=== PATIENT | male | born 1955 | race Caucasian/White ===

== ENCOUNTER 2021-08-18 11:30 | Outpatient (CLI) | payer MEDICARE, BC, SELFPAY ==
[2021-08-18 12:28] LABS: Basophils % 0.2 %; Eosinophils # 0.1 10^3/uL (0.0-0.8); Eosinophils % 1.1 %; Hemoglobin 16.2 g/dL (11.7-16.6); Lymphocytes # 2.1 10^3/uL (0.8-4.8); Lymphocytes % 39.1 %; Mean Corpuscular HGB Conc 34.5 g/dL (30.0-36.0); Mean Corpuscular Hemoglobin 30.5 pg (28.0-34.0); Mean Corpuscular Volume 88.5 fl (80-94); Mean Platelet Volume 10.8 fL (7.4-10.4); Monocytes # 0.4 10^3/uL (0.2-0.9); Monocytes % 8.3 %; Neutrophils # 2.72 10^3/uL (1.8-7.7); Neutrophils % 51.1 %; Nucleated Red Blood Cells % 0 %; Platelet Count 116 10^3/cmm (130-400); Red Blood Count 5.31 10^6/uL (4.1-5.3); Red Cell Distribution Width 11.4 % (12.1-15.1); White Blood Count 5.3 10^3/uL (4.0-10.0)
--- NOTE | 2021-08-18 14:26 | ONC CON_ITS ---
Dr. Dove New Patient Note Patient: José Miguel Parrish Unit #: [id number]: 1955 Dicatated By: Zander Dove M.D.Date of Visit: Aug 18, 2021 Onc MED New Patient/Consult Referring Physician: Caridad Funk N.P. History of Present Illness: Mr. José Miguel Wilder, is a 66-year-old gentleman with a history of thrombocytopenia, as per patient it was 10 or 12 years ago when he was told about mildly low platelet count, as per patient at that time his physician decided to monitor and he was reassured. Has never seen senior information systems architect before. Patient denies any history of melena, hematochezia, nosebleed or gum bleed or petechia or ecchymosis as per patient, in July 2021 during his routine follow-up, his lab work-up showed platelet count 98,000, white blood count 5.6 hemoglobin 16.2 hematocrit 48.2 with a normal differential and because of low platelet count he was referred to hematology for evaluation. Patient denies any night sweats, denies any weight loss, denies any abdominal pain or fullness, denies any peripheral lymphadenopathy, jaundice, denies any recent infection, as per patient he used to take 4 ibuprofen daily but now switched to meloxicam. Patient denies alcohol use, denies any pfva-bod-aqgjioq medication or herbs. Past Medical History: Mr. Bergers medical history consists of BPH, hyperlipidemia, and hypertension. Past Surgical History: Mr. Bergers surgical/procedural history consists of repair of left index finger(pins), Covid 19 vaccine-Moderna in 2020, and transurethral microwave therapy in 2013. Medications: amLODIPine Besylate 1 Tablet (of 10 mg) Oral daily for 90 days, Crestor 1 Tablet (of 20 mg) Oral daily for 90 days, Meloxicam 1 Tablet (of 15 mg) Oral daily Allergies: No Known Allergies. Social History: Mr. Parrish is . Mr. Parrish has never smoked. He has no history of drinking. Family History: There is no documented family history. Review Of Symptoms: Review of Systems is not available for this patient. Vital Signs: Most recent vitals are not available for this patient. Performance Status: 0 - Fully active, able to carry on all predisease activities without restrictions. (ECOG) Physical Examination: ENMT - No mouth sores, no thrush, no jaundice, No cervical lymphadenopathy, Respiratory - Lungs are clear to auscultation, Cardiovascular - Regular rate and rhythm of heart, Abdomen - Soft, bowel sounds present, Extremities - No visible edema. Lab/Imaging: Most recent lab results are not available for this patient. Impression: Longstanding history of isolated mild thrombocytopenia, etiology unclear could be due to medication or low-grade ITP or primary marrow disorder e.g. early MDS or idiopathic. Hypertension Hyperlipidemia Plan: Discussed with patient regarding his labs white blood count 5.3 hemoglobin 16.2 hematocrit 47, platelets 116,000 with a normal differential Clinically, patient doing well with no new signs symptom suggestive of gross bleeding, his repeat CBC done today shows improvement in his mild isolated thrombocytopenia e.g. platelet count is 116,000 normal being 130-400,000, compared to 98,000 on July 08, 2021, As patient mentioned, he has history of mildly low platelets over 10 years, and no history of gross bleeding, his CBC shows hemoglobin normal range, at this point, we will review his peripheral blood smear and see him back in 1 month with CBC, if the platelet count continue to improve or stay stable, will monitor him closely. And will also try to get medical records from his previous PMD in [place]. Signed By: Zander Dove M.D. <<Signature on File>>
== END 2021-08-18 11:31 | disposition home or self-care (01) ==
PROVIDERS: PCP Internal Medicine; Visit Provider Internal Medicine Hematology & Oncology
DX: D69.6 Thrombocytopenia, unspecified (principal); N40.0 Benign prostatic hyperplasia without lower urinary tract symptoms; E78.5 Hyperlipidemia, unspecified; I10 Essential (primary) hypertension; Z79.899 Other long term (current) drug therapy
CPT/HCPCS: 36415; 85025; 99205

== ENCOUNTER 2021-09-20 07:53 | Outpatient (CLI) | payer MEDICARE, BC, SELFPAY ==
[2021-09-20 08:56] LABS: Basophils % 0.4 %; Eosinophils # 0.1 10^3/uL (0.0-0.8); Eosinophils % 1.4 %; Hematocrit 46.8 % (42.0-52.0); Hemoglobin 15.7 g/dL (11.7-16.6); Lymphocytes # 2.4 10^3/uL (0.8-4.8); Lymphocytes % 43.5 %; Mean Corpuscular HGB Conc 33.5 g/dL (30.0-36.0); Mean Corpuscular Hemoglobin 30.4 pg (28.0-34.0); Mean Corpuscular Volume 90.7 fl (80-94); Mean Platelet Volume 11.1 fL (7.4-10.4); Monocytes # 0.4 10^3/uL (0.2-0.9); Monocytes % 7.7 %; Neutrophils % 46.6 %; Nucleated Red Blood Cells % 0 %; Platelet Count 126 10^3/cmm (130-400); Red Blood Count 5.16 10^6/uL (4.1-5.3); Red Cell Distribution Width 11.6 % (12.1-15.1); White Blood Count 5.6 10^3/uL (4.0-10.0)
== END 2021-09-20 07:54 | disposition home or self-care (01) ==
LOC: ONCMED 08:00
PROVIDERS: PCP Nurse Practitioner; Visit Provider Internal Medicine Hematology & Oncology
DX: D69.6 Thrombocytopenia, unspecified (principal)
CPT/HCPCS: 36415; 85025

== ENCOUNTER 2021-09-21 07:49 | Outpatient (CLI) | payer MEDICARE, BC, SELFPAY ==
--- NOTE | 2021-09-21 16:01 | ONC FU_ITS ---
Dr. Dove follow up note Patient: José Miguel Parrish Unit #: [id number]: 1955 Dicatated By: Zander Dove M.D.Date of Visit:Sep 21, 2021 Onc Med Follow-up/Prog Note History of Present Illness: Mr. José Miguel Wilder, is a 66-year-old gentleman with a history of thrombocytopenia, as per patient it was 10 or 12 years ago when he was told about mildly low platelet count, as per patient at that time his physician decided to monitor and he was reassured. Has never seen flight line mechanic before. Patient denies any history of melena, hematochezia, nosebleed or gum bleed or petechia or ecchymosis as per patient, in July 2021 during his routine follow-up, his lab work-up showed platelet count 98,000, white blood count 5.6 hemoglobin 16.2 hematocrit 48.2 with a normal differential and because of low platelet count he was referred to hematology for evaluation. Patient denies any night sweats, denies any weight loss, denies any abdominal pain or fullness, denies any peripheral lymphadenopathy, jaundice, denies any recent infection, as per patient he used to take 4 ibuprofen daily but now switched to meloxicam. Patient denies alcohol use, denies any akfd-yea-cuselnh medication or herbs. Came for follow-up, denies any specific complaints, no fever chills, no nausea or vomiting, no diarrhea or constipation, no petechia or ecchymosis, no nosebleed or gum bleed, no dysuria or hematuria, no melena or hematochezia Medications: amLODIPine Besylate 1 Tablet (of 5 mg) Oral daily for 90 days, Crestor 1 Tablet (of 20 mg) Oral daily for 90 days, Meloxicam 1 Tablet (of 15 mg) Oral daily Allergies: No Known Allergies. Review of Systems: Review of Systems is not available for this patient. Vital Signs: Performed on Sep 21, 2021 09:47 Weight - 210.2 lbs (HIGH) BSA - 0.00 sq.m BMI - 0.00 Temperature - 97.4 F (LOW) Pulse - 89 /min Respiration - 18 /min BP - 152/90 mm(hg) (HIGH) O2 Sat - 96 % Pain - 0 Fatigue - 2 Performance Status: 0 - Fully active, able to carry on all predisease activities without restrictions. (ECOG) Physical Examination: ENMT - No mouth sores, no thrush, no jaundice, Respiratory - Lungs are clear to auscultation, Cardiovascular - Regular rate and rhythm of heart, Abdomen - Soft, bowel sounds present, Extremities - No visible edema. Lab/Imaging: Most recent lab results are not available for this patient. Impression: Longstanding history of isolated mild thrombocytopenia, etiology unclear could be due to medication or low-grade ITP or primary marrow disorder e.g. early MDS or idiopathic. Hypertension Hyperlipidemia Plan: Discussed with patient regarding his labs white blood count 5.6 hemoglobin 15.7 hematocrit 46.8 platelets 126,000 normal being 130- 400,000 compared to 116,000 on August 18, 2021 Clinically, patient is doing well with no new signs symptoms suggestive of acute or chronic bleeding, his follow-up CBC shows improving isolated thrombocytopenia. Peripheral blood smear shows no obvious abnormality, adequate platelets, no clumps. At this point, no further work-up rather observation, patient return to clinic in 2 months with CBC Signed By: Zander Dove M.D. <<Signature on File>>
== END 2021-09-21 07:50 | disposition home or self-care (01) ==
LOC: ONCMED 07:50
PROVIDERS: PCP Nurse Practitioner; Visit Provider Internal Medicine Hematology & Oncology
DX: D69.6 Thrombocytopenia, unspecified (principal); I10 Essential (primary) hypertension; E78.5 Hyperlipidemia, unspecified; Z79.899 Other long term (current) drug therapy
CPT/HCPCS: 99214

== ENCOUNTER → 2021-10-29 08:02 | Outpatient (BNVA) | payer MEDICARE, BC, SELFPAY | PROVIDERS: PCP Nurse Practitioner; Visit Provider Urology | DX: N43.3 Hydrocele, unspecified (principal); R39.9 Unspecified symptoms and signs involving the genitourinary system | CPT/HCPCS: 81003 ==

== ENCOUNTER 2021-11-18 08:14 | Outpatient (CLI) | payer MEDICARE, BC, SELFPAY ==
[2021-11-18 08:36] LABS: Basophils % 0.3 %; Eosinophils # 0.1 10^3/uL (0.0-0.8); Eosinophils % 1.8 %; Hemoglobin 15.8 g/dL (11.7-16.6); Lymphocytes # 1.7 10^3/uL (0.8-4.8); Lymphocytes % 44.6 %; Mean Corpuscular HGB Conc 33.6 g/dL (30.0-36.0); Mean Corpuscular Hemoglobin 30.2 pg (28.0-34.0); Mean Corpuscular Volume 89.9 fl (80-94); Mean Platelet Volume 10.6 fL (7.4-10.4); Monocytes # 0.3 10^3/uL (0.2-0.9); Monocytes % 6.4 %; Neutrophils # 1.83 10^3/uL (1.8-7.7); Neutrophils % 46.9 %; Nucleated Red Blood Cells % 0 %; Platelet Count 109 10^3/cmm (130-400); Red Blood Count 5.23 10^6/uL (4.1-5.3); Red Cell Distribution Width 11.9 % (12.1-15.1); White Blood Count 3.9 10^3/uL (4.0-10.0)
== END 2021-11-18 08:15 | disposition home or self-care (01) ==
PROVIDERS: PCP Nurse Practitioner; Visit Provider Internal Medicine Hematology & Oncology
DX: D69.6 Thrombocytopenia, unspecified (principal)
CPT/HCPCS: 36415; 85025

== ENCOUNTER 2021-11-22 11:55 | Outpatient (CLI) | payer MEDICARE, BC, SELFPAY ==
--- NOTE | 2021-11-25 08:52 | ONC FU_ITS ---
Genesis Paulson Progress Note Patient: José Miguel Parrish Unit #: [id number]: 1955 Dicatated By: Genesis Paulson N.P.Date of Visit:Nov 22, 2021 Onc MED Follow-up/Prog Note Chief Complaint: Thrombocytopenia History of Present Illness: Mr. José Miguel Wilder, is a 66-year-old gentleman with a history of thrombocytopenia, as per patient it was 10 or 12 years ago when he was told about mildly low platelet count, as per patient at that time his physician decided to monitor and he was reassured. Has never seen air breaker operator before. Patient denies any history of melena, hematochezia, nosebleed or gum bleed or petechia or ecchymosis as per patient, in July 2021 during his routine follow-up, his lab work-up showed platelet count 98,000, white blood count 5.6 hemoglobin 16.2 hematocrit 48.2 with a normal differential and because of low platelet count he was referred to hematology for evaluation. Patient denies any night sweats, denies any weight loss, denies any abdominal pain or fullness, denies any peripheral lymphadenopathy, jaundice, denies any recent infection, as per patient he used to take 4 ibuprofen daily but now switched to meloxicam. Patient denies alcohol use, denies any negh-gyh-kawecwd medication or herbs. Patient presents today for follow-up. He states he is feeling well. He denies weakness or fatigue. His appetite is good. No fever, chills, night sweats. No sinus drainage or sore throat. No shortness of breath, cough, chest pain. No abdominal pain, hematochezia, or melena. No joint or bone pain. No headaches or dizziness. Review Of Symptoms: See above. Past Medical History: BPH Hyperlipidemia Hypertension Past Surgical History: Repair of left index finger(pins) Covid 19 vaccine-Moderna in 2020 Transurethral microwave therapy in 2013 Allergies: No Known Allergies. Medications: amLODIPine Besylate 1 Tablet (of 5 mg) Oral daily for 90 days Meloxicam 1 Tablet (of 15 mg) Oral daily Family History: There is no documented family history. Social History: Mr. Parrish is . Mr. Parrish has never smoked. He has no history of drinking. Physical Examination: Performed on Nov 22, 2021 12:19: Height - 69 in, Weight - 203.0 lbs (LOW), BSA - 2.08 sq.m, BMI - 29.98, Temperature - 97.0 F (LOW), Pulse - 61 /min, Respiration - 18 /min, BP - 146/81 mm(hg) (HIGH), O2 Sat - 98 %, Pain - 0, and Fatigue - 3. Performance Status: 0 - Fully active, able to carry on all predisease activities without restrictions. (ECOG) Constitutional Alert, cooperative, oriented. Mood and affect appropriate. Appears close to chronological age. Well nourished. Well developed. Head Normocephalic; no scars. Respiratory Lungs are clear to auscultation without rhonchi or wheezing. Cardiovascular Regular rate and rhythm of heart without murmurs, gallops or rubs. Abdomen Non-tender, non-distended, no masses, ascites or hepatosplenomegaly. Good bowel sounds. No guarding or rebound tenderness. Extremities No visible deformities, no cyanosis, clubbing or edema. Pulses 3+ and equal bilaterally. Musculoskeletal No tenderness or swelling, normal range of motion without obvious weakness. Psychiatric Alert and oriented times three. Coherent speech. Verbalizes understanding of our discussions today. Laboratory: Most recent lab results are not available for this patient. Impression: Longstanding history of isolated mild thrombocytopenia, etiology unclear could be due to medication or low-grade ITP or primary marrow disorder e.g. early MDS or idiopathic. Hypertension Hyperlipidemia Plan: Labs were reviewed with patient. His WBC is at 3.9, hemoglobin 15.8, hematocrit 47.1, and his platelet count is 109,000. Patient is doing well with no signs or symptoms of bleeding. His platelet count is slightly lower today than on previous visits. We will continue with expectant management. He will return to the clinic in 2 months with CBC and CMP. Signed By: Genesis Paulson N.P. <<Signature on File>>
== END 2021-11-22 11:56 | disposition home or self-care (01) ==
PROVIDERS: PCP Nurse Practitioner; Visit Provider Nurse Practitioner Family
DX: D69.6 Thrombocytopenia, unspecified (principal); I10 Essential (primary) hypertension; E78.5 Hyperlipidemia, unspecified
CPT/HCPCS: 99214

== ENCOUNTER 2022-01-24 13:51 | Oncology outpatient (recurring) (ONCR) | payer MEDICARE, BC, SELFPAY ==
[2022-01-21 07:38] LABS: Basophils % 0.1 %; Eosinophils # 0.1 10^3/uL (0.0-0.8); Eosinophils % 1.3 %; Hematocrit 42.5 % (42.0-52.0); Hemoglobin 15.2 g/dL (11.7-16.6); Lymphocytes # 1.9 10^3/uL (0.8-4.8); Lymphocytes % 27.4 %; Mean Corpuscular HGB Conc 35.8 g/dL (30.0-36.0); Mean Corpuscular Volume 86.6 fl (80-94); Mean Platelet Volume 10.9 fL (7.4-10.4); Monocytes # 0.5 10^3/uL (0.2-0.9); Monocytes % 7.6 %; Neutrophils # 4.39 10^3/uL (1.8-7.7); Neutrophils % 63.5 %; Nucleated Red Blood Cells % 0 %; Platelet Count 115 10^3/cmm (130-400); Red Blood Count 4.91 10^6/uL (4.1-5.3); Red Cell Distribution Width 11.7 % (12.1-15.1); White Blood Count 6.9 10^3/uL (4.0-10.0)
[2022-01-21 07:56] LABS: Alanine Aminotransferase 36 U/L (0-41); Albumin Level 4.2 g/dL (3.5-5.2); Alkaline Phosphatase 87 IU/L (40-130); Anion Gap 16.4 (5-19); Aspartate Amino Transferase 22 U/L (0-40); Blood Urea Nitrogen 12 mg/dL (8-23); Calcium 8.5 mg/dL (8.5-10.5); Carbon Dioxide 22 mmol/L (22-29); Chloride 102 mmol/L (98-107); Globulin 2.6 g/dL (1.3-4.6); Glomerular Filtration Rate 113.2 mL/min (90-130); Glucose 214 mg/dL (65-115); Osmolality Calculated 290 mOsm/kg (285-295); Potassium 3.4 mmol/L (3.5-5.1); Sodium 137 mmol/L (136-145); Total Bilirubin 0.4 mg/dL (0.15-1.2); Total Protein 6.8 g/dL (6.6-8.7)
== END 2022-02-03 23:59 | disposition home or self-care (01) ==
PROVIDERS: PCP Nurse Practitioner; Visit Provider Nurse Practitioner Family
DX: D69.6 Thrombocytopenia, unspecified (principal); I10 Essential (primary) hypertension; E78.5 Hyperlipidemia, unspecified
CPT/HCPCS: 36415; 80053; 85025; 99214

== ENCOUNTER 2022-02-06 08:20 | Inpatient (IN) | payer MEDICARE, BC, SELFPAY ==
[2022-02-06] VITALS (8 sets, daily range): BP systolic 139–165; BP diastolic 82–92; PULSE 57–79; RESP 15–18; TEMP 36.6–37.1; O2SAT 93–97; BMI 29.2
--- NOTE | 2022-02-06 08:40 | ED_ITS ---
HPI - General Adult General: Chief complaint: General Medical Stated complaint: face swelling after taking steroid Time Seen by Provider: 02/06/22 08:33 History of Present Illness: 66-year-old presents with facial swelling. States that yesterday he started taking promethazine hydrocodone Benadryl prednisone due to suspected sinusitis as prescribed by his primary care doctor. States he is taking all his medications before but he started getting facial swelling that is worse over his upper lip and nose. Denies any fever. Reports mild congestion but no chest pain or shortness of breath. Denies any throat closure. Denies any GI symptoms or rash. Review of Systems Narrative: - CONSTITUTIONAL: Denies weight loss, fever and chills. - HEENT: Denies changes in vision and hearing. - RESPIRATORY: Denies SOB and cough. - CV: Denies palpitations and CP. - GI: Denies abdominal pain, nausea, vomiting and diarrhea. - : Denies dysuria and urinary frequency. - MSK: Denies myalgia and joint pain. - SKIN: Denies rash and pruritus. - NEUROLOGICAL: Denies headache, weakness, numbness and syncope. - PSYCHIATRIC: Denies suicidal ideation [facility] PFS: Medical History (Updated 01/24/22 @ 14:35 by Genesis Paulson NP) Arthritis Essential (primary) hypertension Family history of melanoma Hiatal hernia Hx of fracture of finger Left hydrocele Mild acid reflux Scrotal swelling Thrombocytopenia Surgical History Hx of eye surgery Family History Father Healthy adult Mother , AT 84 Dementia Stroke Other Cancer Social History Smoking and tobacco status: never smoked Alcohol intake: never Marital status: Current occupational status: retired History of recent travel: Yes Physical Exam Narrative: EXAM NARRATIVE: - GENERAL: Alert and oriented x 3. No acute distress. Well-nourished. - EYES: EOMI. Anicteric. - HENT: Upper lip and nasal swelling. No stridor. Oropharynx is clear. No myosis or proptosis. Atraumatic, no C-spine tenderness. Moist mucous membranes. No scleral icterus. No cervical lymphadenopathy. - LUNGS: Clear to auscultation bilaterally. No accessory muscle use. Equal lung sounds bilaterally. No respiratory distress. - CARDIOVASCULAR: Regular rate and rhythm. No murmur. No JVD. - ABDOMEN: Soft, non-tender and non-distended. Negative CVA tenderness bilaterally, no rebound or guarding, negative Crespo sign. No palpable masses. - EXTREMITIES: No edema. Non-tender. - SKIN: No rashes or lesions. Warm. - NEUROLOGIC: No meningismus or focal neurological deficits. CN II-XII grossly intact. - PSYCHIATRIC: Cooperative. Appropriate mood and affect. Course Vital Signs: Vital signs: Vital Signs Temperature 98.6 F 02/06/22 08:27 Pulse Rate 79 02/06/22 08:27 Respiratory Rate 16 02/06/22 08:27 Blood Pressure 165/92 02/06/22 08:27 Pulse Oximetry 97 02/06/22 08:27 MDM - General Adult Medical Decision Making 66-year-old presents with facial swelling. He was started on multiple medications recently by his primary care due to suspected sinusitis however states that he has been on all these medications in the past without acute event. Does have facial swelling. He denies any CATHERINE inhibitor or ARB use. D oes not have any other system involvement. On exam there is some swelling of the upper lip and upper face however there is no oropharyngeal swelling or stridor or wheezing. At this time we will stop all medications and admit for observation. Remainder of lab work and imaging reviewed. Discussed with hospitalist and they agreed patient would benefit from admission. Patient admitted in stable condition. Further evaluation management per hospitalist team. Lab Data : 02/06/22 08:50 02/06/22 08:50 Laboratory Results WBC 14.7 10^3/uL (4.0-10.0) H 02/06/22 08:50 RBC 5.24 10^6/uL (4.1-5.3) 02/06/22 08:50 Hgb 15.6 g/dL (11.7-16.6) 02/06/22 08:50 Hct 46.0 % (42.0-52.0) 02/06/22 08:50 MCV 87.8 fl (80-94) 02/06/22 08:50 MCH 29.8 pg (28.0-34.0) 02/06/22 08:50 MCHC 33.9 g/dL (30.0-36.0) 02/06/22 08:50 RDW 11.5 % (12.1-15.1) L 02/06/22 08:50 Plt Count 144 10^3/cmm (130-400) 02/06/22 08:50 MPV 10.7 fL (7.4-10.4) H 02/06/22 08:50 Neut % (Auto) 74.1 % 02/06/22 08:50 Lymph % (Auto) 16.6 % 02/06/22 08:50 Luce % (Auto) 7.9 % 02/06/22 08:50 Eos % (Auto) 0.3 % 02/06/22 08:50 Baso % (Auto) 0.3 % 02/06/22 08:50 Neut # (Auto) 10.86 10^3/uL (1.8-7.7) H 02/06/22 08:50 Lymph # (Auto) 2.4 10^3/uL (0.8-4.8) 02/06/22 08:50 Luce # (Auto) 1.2 10^3/uL (0.2-0.9) H 02/06/22 08:50 Eos # (Auto) 0.0 10^3/uL (0.0-0.8) 02/06/22 08:50 Baso # (Auto) 0.0 10^3/uL (0.0-0.1) 02/06/22 08:50 Nucleated RBC % (auto) 0 % 02/06/22 08:50 Nucleated RBCs # 0.0 /100WBC 02/06/22 08:50 Sodium 140 mmol/L (136-145) 02/06/22 08:50 Potassium 3.6 mmol/L (3.5-5.1) 02/06/22 08:50 Chloride 99 mmol/L (98-107) 02/06/22 08:50 Carbon Dioxide 32 mmol/L (22-29) H 02/06/22 08:50 Anion Gap 12.6 (5-19) 02/06/22 08:50 BUN 15 mg/dL (8-23) 02/06/22 08:50 Creatinine 0.9 mg/dL (0.7-1.2) 02/06/22 08:50 GFR Calculation 84.7 mL/min (90-130) L 02/06/22 08:50 Glucose 205 mg/dL (65-115) H 02/06/22 08:50 Calculated Osmolality 297 mOsm/kg (285-295) H 02/06/22 08:50 Calcium 9.4 mg/dL (8.5-10.5) 02/06/22 08:50 Total Bilirubin 0.4 mg/dL (0.15-1.2) 02/06/22 08:50 AST 14 U/L (0-40) 02/06/22 08:50 ALT 26 U/L (0-41) 02/06/22 08:50 Alkaline Phosphatase 87 IU/L (40-130) 02/06/22 08:50 Total Protein 7.6 g/dL (6.6-8.7) 02/06/22 08:50 Albumin 4.5 g/dL (3.5-5.2) 02/06/22 08:50 Globulin 3.1 g/dL (1.3-4.6) 02/06/22 08:50 Discharge Plan Discharge Condition: Stable Prescriptions: No Action amlodipine 10 mg tablet 10 mg PO DAILY 0RF albuterol sulfate [Ventolin HFA] 90 mcg/actuation HFA aerosol inhaler 2 puff inhalation Q6H PRN (Reason: shortness of breath or wheezing) Qty: 8.5 0RF benzonatate 100 mg capsule 100 mg PO BID PRN (Reason: cough) Qty: 10 0RF Referrals: Caridad Funk FNP [Primary Care Provider] - Coding Level of Care Code ED Americanization Teacher for Chg Yohannes
[2022-02-06 08:57] LABS: Basophils % 0.3 %; Eosinophils % 0.3 %; Hemoglobin 15.6 g/dL (11.7-16.6); Lymphocytes # 2.4 10^3/uL (0.8-4.8); Lymphocytes % 16.6 %; Mean Corpuscular HGB Conc 33.9 g/dL (30.0-36.0); Mean Corpuscular Hemoglobin 29.8 pg (28.0-34.0); Mean Corpuscular Volume 87.8 fl (80-94); Mean Platelet Volume 10.7 fL (7.4-10.4); Monocytes # 1.2 10^3/uL (0.2-0.9); Monocytes % 7.9 %; Neutrophils # 10.86 10^3/uL (1.8-7.7); Neutrophils % 74.1 %; Nucleated Red Blood Cells % 0 %; Platelet Count 144 10^3/cmm (130-400); Red Blood Count 5.24 10^6/uL (4.1-5.3); Red Cell Distribution Width 11.5 % (12.1-15.1); White Blood Count 14.7 10^3/uL (4.0-10.0)
[2022-02-06 09:17] LABS: Alanine Aminotransferase 26 U/L (0-41); Albumin Level 4.5 g/dL (3.5-5.2); Alkaline Phosphatase 87 IU/L (40-130); Anion Gap 12.6 (5-19); Aspartate Amino Transferase 14 U/L (0-40); Blood Urea Nitrogen 15 mg/dL (8-23); Calcium 9.4 mg/dL (8.5-10.5); Carbon Dioxide 32 mmol/L (22-29); Chloride 99 mmol/L (98-107); Globulin 3.1 g/dL (1.3-4.6); Glomerular Filtration Rate 84.7 mL/min (90-130); Glucose 205 mg/dL (65-115); Osmolality Calculated 297 mOsm/kg (285-295); Potassium 3.6 mmol/L (3.5-5.1); Sodium 140 mmol/L (136-145); Total Bilirubin 0.4 mg/dL (0.15-1.2); Total Protein 7.6 g/dL (6.6-8.7)
--- NOTE | 2022-02-06 11:45 | CTR_ITS ---
PROCEDURE INFORMATION: Exam: CT Neck With Contrast Exam date and time: 02/06/2022 1:11 PM Age: 66 years old Clinical indication: Other: Facial pain; Additional info: Red nose and face pain TECHNIQUE: Imaging protocol: Computed tomography of the neck with contrast. Radiation optimization: All CT scans at this facility use at least one of these dose optimization techniques: automated exposure control; mA and/or kV adjustment per patient size (includes targeted exams where dose is matched to clinical indication); or iterative reconstruction. Contrast material: OMNIPAQUE 350; Contrast volume: 75 ml; Contrast route: INTRAVENOUS (IV); COMPARISON: No relevant prior studies available. RADIATION DOSE METRICS: Total DLP (mGy-cm): 533.79 FINDINGS: Paranasal sinuses: There is mucosal thickening in the paranasal sinuses with near complete opacification of the right maxillary, right ethmoid and sphenoid sinuses. Pharynx: Unremarkable. No significant tonsillar enlargement. Larynx: Unremarkable. Epiglottis is normal. Prevertebral and retropharyngeal spaces: Unremarkable. Salivary glands: Normal. Glands are normal in size. Thyroid: Normal. No enlarged or calcified nodules. Lymph nodes: Unremarkable. No lymphadenopathy. Trachea: Visualized trachea is unremarkable. Lungs: Unremarkable as visualized. Bones/joints: Chronic degenerative changes are present in the cervical spine with disc space narrowing sclerosis and osteophytes. Soft tissues: Unremarkable. No significant soft tissue swelling. CT/CT neck w con* [id number] IMPRESSION: Paranasal sinusitis with near complete opacification of the right maxillary, right ethmoid and sphenoid sinuses.
[2022-02-06] MEDS: morphine 4 mg/mL SDV 1 mL 2 MG IVP (11:50)
--- NOTE | 2022-02-06 12:10 | PM.HP ---
Providers/Chief Complaint Admitting Physician: Nuris Rosa MD Primary Care Provider: JOJO Ramirez Chief Complaint: face swelling after taking steroid History of Present Illness José Miguel Parrish is a 66 year old male who presented today with chief complaint of worsening of swelling of his lip and redness of nose. Patient is stating that he has been dealing with sinus infection, chest congestion for last 1 week, his PCP recommended cough suppressant, steroids and Benadryl. He was not given any antibiotics. Few days after he went for fishing at [place], he swam in the water as well and next day he started noticing worsening redness and swelling of his nose and lip. He initially attributed his symptoms to reaction to medications. He decided to come to the ED for further evaluation because last night he could not sleep and he took 1 dose of hydrocodone which was prescribed to his by the doctor. Patient is stating that he took hydrocodone just to make him sleep. In the ER he was diagnosed with cellulitis by myself, requested CT neck he was diagnosed with complete opacification of maxillary ethmoid and sphenoid sinuses, no air-fluid levels to suggest sepsis, he does have cellulitis folliculitis of his nose, I did notice brown crusting inside his nose, I provided him MRSA and antipseudomonal coverage, did discuss this case with Dr. Marx however he is not on-call he is in agreement with IV antibiotics for now and outpatient follow-up no surgical intervention at this point Review of Systems Const: Reports: chills and body aches Eyes: Denies: change in vision ENMT: Denies: throat pain Card: Denies: chest pain Resp: Denies: dyspnea GI: Denies: abdominal pain : Denies: flank pain Musc: Denies: neck pain Skin/Breast: Reports: skin tenderness and skin swelling Neuro: Denies: headache(s) or numbness in extremities Psych: Denies: anxiety Endo: Denies: polyuria Gómez/Lymph: Denies: easy bruising All/Imm: Denies: urticaria Medications/Allergies Home Medications Medication Instructions Recorded Confirmed Last Taken Type albuterol sulfate 90 mcg/actuation 2 puff INHALATION Q6H PRN #8.5 g 10/23/21 02/06/22 Unknown Rx aerosol inhaler (Ventolin HFA) amlodipine 5 mg tablet 5 mg PO DAILY 02/06/22 02/06/22 02/06/22 History atorvastatin 20 mg tablet 20 mg PO DAILY 02/06/22 02/06/22 02/05/22 History fluticasone propionate 50 2 spray INTRANASAL DAILY PRN 02/06/22 02/06/22 Unknown History mcg/actuation nasal spray,suspension prednisone 20 mg tablet 40 mg PO DAILY 02/06/22 02/06/22 02/06/22 History promethazine-DM 6.25 mg-15 mg/5 mL 5 - 10 ml PO Q6H PRN 02/06/22 02/06/22 Unknown History oral syrup Allergies Allergy/AdvReac Type Severity Reaction Status Date / Time meloxicam Allergy ALGY-Swell Verified 01/24/22 14:04 Lip/Tongue/Throat PFSH Acute PFSH: Medical History Arthritis Essential (primary) hypertension Family history of melanoma Hiatal hernia Hx of fracture of finger Left hydrocele Mild acid reflux Scrotal swelling Thrombocytopenia Surgical History Hx of eye surgery Family History Father Healthy adult Mother , AT 84 Dementia Stroke Other Cancer Social History Smoking and tobacco status: never smoked Alcohol intake: never Marital status: Current occupational status: retired History of recent travel: Yes Vitals/I&O/Wt Last Vital Signs Temp 98.6 F 02/06/22 08:27 Pulse 76 02/06/22 11:39 Resp 17 02/06/22 11:50 BP 143/83 02/06/22 11:39 Pulse Ox 97 02/06/22 11:39 Weight last 48 hrs Weight 89.811 kg Physical Exam Narrative: Patient is sitting comfortably in his bed No active stridor or wheezing No active signs of respiratory distress Bilateral breath sounds are normal S1, S2 Nonfocal neuro exam No signs of meningoencephalitis Cellulitis of nose Nonpurulent Brown crusting inside his nose Nasal turbinates are swollen and erythematous Swelling of upper lip No signs of eye pain, EOMI, PERRLA No eye pain at all Data : 02/06/22 08:50 02/06/22 08:50 A&P Assessment and plan (1) Cellulitis: Status: Acute (2) Erysipelas: Status: Acute (3) Sinusitis: Status: Acute (4) Hyperglycemia: Status: Acute Plan Cellulitis nose Folliculitis of nasal hairs Patient recently swam in river water Alexis reynoso? No active signs of meningoencephalitis No periorbital edema, no pain on eye movement No headache or neck pain He is afebrile My concern is related to worsening of sinusitis, I would cover him for MRSA and Pseudomonas, check hemoglobin A1c I will give him steroids, IV antibiotics, keep him on IV fluids give him pseudoephedrine, Flonase I have discussed this case with ENT surgeon who did not recommend any surgical intervention for now I will also ask Dr. Santoro ID market intelligence consultant to take a look at him If I see any signs of worsening might need transfer to another hospital otherwise he will follow-up outpatient with Dr. 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
[2022-02-06] MEDS: piperacillin-tazobactam 3.375 GM in sodium chloride 0.9% (plus) 50 ML IV ×2 (12:27→18:56)
[2022-02-06 12:50] LABS: Procalcitonin 0.06 ng/mL (0-0.5)
[2022-02-06] MEDS: iohexol 350 mg/mL 100 mL Btl IV (13:09)
[2022-02-06] MEDS: enoxaparin 40 mg/0.4 mL Syringe SUBCUT (14:41)
[2022-02-06] MEDS: dexamethasone 4 mg/mL INJ IVP (14:41)
[2022-02-06] MEDS: sodium chloride 0.9% 1,000 ML 75 ML IV (14:42)
[2022-02-06] MEDS: morphine IR 15 mg Tablet PO (14:51)
[2022-02-06 17:09] LABS: Estmated Average Glucose 151; Hemoglobin A1C 6.9 % (4.0-6.0)
[2022-02-06 17:18] LABS: Glucose Point of Care 288 mg/dL (70-110)
[2022-02-06] MEDS: insulin lispro 100 unit/1 mL SUBCUT (17:18)
[2022-02-06] MEDS: fluticasone nasal spray 16gm Btl 1 SPRAY NASAL (17:19)
[2022-02-06 21:00] LABS: Glucose Point of Care 321 mg/dL (70-110)
[2022-02-06] MEDS: acetaminophen 500 mg Tablet PO (23:38)
[2022-02-07] VITALS (11 sets, daily range): BP systolic 139–178; BP diastolic 72–103; PULSE 63–71; RESP 16–18; TEMP 36.7–36.8; O2SAT 92–98
[2022-02-07] MEDS: vancomycin 1,250 MG/250 ML PIGGYBACK 250 MG IV ×2 (00:53→13:16)
[2022-02-07 04:36] LABS: Basophils % 0.2 %; Eosinophils % 0.1 %; Hematocrit 41.7 % (42.0-52.0); Hemoglobin 14.8 g/dL (11.7-16.6); Lymphocytes % 12.1 %; Mean Corpuscular HGB Conc 35.5 g/dL (30.0-36.0); Mean Corpuscular Hemoglobin 30.5 pg (28.0-34.0); Mean Corpuscular Volume 85.8 fl (80-94); Mean Platelet Volume 11.2 fL (7.4-10.4); Monocytes % 6.1 %; Neutrophils # 13.58 10^3/uL (1.8-7.7); Neutrophils % 80.8 %; Nucleated Red Blood Cells % 0 %; Platelet Count 142 10^3/cmm (130-400); Red Blood Count 4.86 10^6/uL (4.1-5.3); Red Cell Distribution Width 11.7 % (12.1-15.1); White Blood Count 16.8 10^3/uL (4.0-10.0)
[2022-02-07] MEDS: piperacillin-tazobactam 3.375 GM in sodium chloride 0.9% (plus) 50 ML IV ×3 (04:43→20:34)
[2022-02-07] MEDS: sodium chloride 0.9% 1,000 ML 75 ML IV (04:43)
[2022-02-07 05:02] LABS: Anion Gap 15.4 (5-19); Blood Urea Nitrogen 14 mg/dL (8-23); C Reactive Protein 119.4 mg/L (0.0-4.9); Calcium 8.7 mg/dL (8.5-10.5); Carbon Dioxide 25 mmol/L (22-29); Chloride 99 mmol/L (98-107); Creatinine Clr Calc Pharmacy 102.0109; Glomerular Filtration Rate 113.2 mL/min (90-130); Glucose 198 mg/dL (65-115); Magnesium 2.2 mg/dL (1.7-2.3); Osmolality Calculated 286 mOsm/kg (285-295); Potassium 4.4 mmol/L (3.5-5.1); Sodium 135 mmol/L (136-145)
[2022-02-07 05:24] LABS: Slide Review Slide Review Perform
[2022-02-07] MEDS: morphine IR 15 mg Tablet PO ×2 (06:46→18:15)
[2022-02-07 06:48] LABS: Glucose Point of Care 159 mg/dL (70-110)
--- NOTE | 2022-02-07 07:00 | P.CONIM_ITS ---
Providers/Reason For Consult Consulting Physician/Specialty*: Crystal Santoro MD/Infectious Disease Reason for Consult*: sinusitis/facial cellulitis Requesting Physician: Dr. Nuris Rosa Attending Physician: Nuris Rosa MD Primary Care Provider: JOJO Ramirez History of Present Illness History of Present Illness Patient seen and examined at 7am. José Miguel Parrish is a 66 year old male with PMH as outlined below who is currently admitted after developing facial swelling. Per patient he has been experiencing an episode of sinusitis for the past 7-10 days , managed by oral decongestants and oral steroids without significant change in symptoms. He has a h/o chronic allergies and recurrent seasonal sinusitis, which usually resolved with decongestants and Z ascencion. Describes his symptoms as rhinorrhea, nasal stuffiness and sinus fullness. On monday (today is Monday), patient went out fishing and then had to swim in the river to recover an item that had fallen over. Did not deep dive per history. On Monday evening he noticed that tip of his nose had started becoming red, warm and tender with changes extending more proximally into the nose. Also developed upper lip swelling. Presented to the ER due to concerns of cellulitis. CT neck was performed which showed patent airway, no pharyngeal, floor of mouth or tonsillar involvement. Note made of sinusitis on limited imaging. He denies any fever. Experienced chills this morning with some diaphoresis. Denies any cough, dyspnea or chest pain. No past h/o similar symptoms. Does not recall any obvious trauma to his nose or lip, except for excessive rubbing with tissue paper to clear nasal discharge. No blood in discharge. Denies past h/o herpetic infection. He inserted a rapid Ag covid swab into both nostrils on Monday morning. no past h/o fungal sinusitis. No h/o animal bite over the site. Hba1c at 7.0 Review of Systems General: Reports: 10 or more systems reviewed and unremarkable except in HPI and below Const: Denies: fever(s), chills or body aches Eyes: Denies: change in vision, blurry vision or photophobia ENMT: Reports: hoarseness; Denies: throat pain, enlarged tonsils, odynophagia or nasal congestion Card: Denies: chest pain, palpitations, irregular heart rhythm, edema, swelling of feet/ankles, lightheadedness, pre-syncope, dyspnea on exertion or orthopnea Resp: Denies: dyspnea, productive cough, non-productive cough, wheezing, stridor, pain on inspiration, change in phlegm color, hemoptysis or chest congestion GI: Denies: abdominal pain, nausea, vomiting, hematemesis, coffee ground emesis, dysphagia, heartburn, diarrhea, constipation, GI cramping, change in stool character, hematochezia or melena : Denies: flank pain, dysuria, urinary frequency, urinary urgency, urinary hesitancy or hematuria Musc: Denies: neck pain, back pain, extremity pain, joint swelling, joint warmth or deformity Neuro: Denies: headache(s), numbness in extremities, weakness in extremities, sensory changes, difficulty walking, frequent falls, dizziness, vertigo, behavioral changes, Slurred speech present or seizure-like activity Psych: Denies: anxiety, depression, suicidal ideation or homicidal ideation Endo: Denies: polyuria, polydipsia, tired all the time, cold intolerance or hot flashes Gómez/Lymph: Denies: easy bruising or easy bleeding Medications/Allergies Home Medications Medication Instructions Recorded Confirmed Last Taken Type albuterol sulfate 90 mcg/actuation 2 puff INHALATION Q6H PRN #8.5 g 10/23/21 02/06/22 Unknown Rx aerosol inhaler (Ventolin HFA) amlodipine 5 mg tablet 5 mg PO DAILY 02/06/22 02/06/22 02/06/22 History atorvastatin 20 mg tablet 20 mg PO DAILY 02/06/22 02/06/22 02/05/22 History fluticasone propionate 50 2 spray INTRANASAL DAILY PRN 02/06/22 02/06/22 Unknown History mcg/actuation nasal spray,suspension prednisone 20 mg tablet 40 mg PO DAILY 02/06/22 02/06/22 02/06/22 History promethazine-DM 6.25 mg-15 mg/5 mL 5 - 10 ml PO Q6H PRN 02/06/22 02/06/22 Unknown History oral syrup Allergies Allergy/AdvReac Type Severity Reaction Status Date / Time meloxicam Allergy José Verified 01/24/22 14:04 Lip/Tongue/Throat Current Medications Generic Name Dose Route Start Last Admin Trade Name Freq PRN Reason Stop Dose Admin Acetaminophen 500 mg 02/06/22 13:42 02/07/22 11:08 Acetaminophen 500 Mg Tablet PO 500 mg Q4H PRN Administration fever Enoxaparin Sodium 40 mg 02/06/22 14:00 02/07/22 13:41 Enoxaparin 40 Mg/0.4 Ml Syringe SUBCUT 40 mg Q24H BRITTA Administration Fluticasone Propionate 1 spray 02/06/22 18:00 02/07/22 17:20 Fluticasone Nasal [place] 16gm Btl NASAL 1 spray BID BRITTA Administration Hydromorphone HCl 0.2 mg 02/06/22 13:42 02/07/22 20:32 Hydromorphone 1 Mg/Ml Inj 1 Ml IVP 0.2 mg Q4H PRN Administration pain Piperacillin Sod/Tazobactam 50 mls @ 12.5 mls/hr 02/06/22 11:45 02/07/22 20:34 Sod 3.375 gm/ Sodium Chloride IV 12.5 mls/hr Q8H BRITTA Administration Protocol Vancomycin/PEG/NADA/Lysine/Water 1,250 mg in 250 mls @ 250 mls/hr 02/07/22 01:00 02/07/22 14:39 Vancocin IV Infused Q12H BRITTA Infusion Insulin Human Lispro 0 unit 02/06/22 18:00 02/07/22 17:19 Insulin Lispro 100 Unit/1 Ml SUBCUT Not Given TIDWM BRITTA Protocol Morphine Sulfate 15 mg 02/06/22 13:42 02/07/22 18:15 Morphine Ir 15 Mg Tablet PO 15 mg Q6H PRN Administration pAIN Senna/Docusate Sodium 1 tab 02/07/22 09:00 02/07/22 08:52 Sennosides-Docusate Tablet PO 1 tab DAILY BRITTA Administration PFSH Acute PFSH: Medical History Arthritis Essential (primary) hypertension Family history of melanoma Hiatal hernia Hx of fracture of finger Left hydrocele Mild acid reflux Scrotal swelling Thrombocytopenia Surgical History Hx of eye surgery Family History Father Healthy adult Mother , AT 84 Dementia Stroke Other Cancer Social History Smoking and tobacco status: never smoked Alcohol intake: never Marital status: Current occupational status: retired History of recent travel: Yes Vitals/I&O/Wt Last Vital Signs Temp 98.3 F 02/07/22 19:26 Pulse 70 02/07/22 20:00 Resp 18 02/07/22 20:32 BP 178/103 02/07/22 19:26 Pulse Ox 92 02/07/22 20:00 02/07/22 02/07/22 02/07/22 06:59 14:59 22:59 Intake Total 1350 / 2370 2245 / 2245 290 / 2535 Balance 1350 / 2370 2245 / 2245 290 / 2535 Weight last 48 hrs Weight 89.811 kg Weight 89.811 kg Physical Exam Narrative: General: No acute distress, AO x3 HEENT: PERRLA, no proptosis, pupils bilaterally equal and reactive, pallors not present. Soft tissue swelling, redness warmth and tenderness over nose tip of nose extending on either ala trending proximally. Swelling also noted along the nasal mucosa lining cartilages. yellowish crusting noted. Also noted skin excoriation over B/L ala and upper lip Abdomen: Soft, nontender, bowel sounds present Neuro: No focal deficits, no facial deformity, AO x3, power 5/5 in all limbs Data : 02/07/22 03:50 02/07/22 03:50 Other Labs: Radiology Impressions Neck CT 02/06/22 11:45 IMPRESSION: Paranasal sinusitis with near complete opacification of the right maxillary, right ethmoid and sphenoid sinuses. Laboratory Results WBC 16.8 10^3/uL (4.0-10.0) H 02/07/22 03:50 RBC 4.86 10^6/uL (4.1-5.3) 02/07/22 03:50 Hgb 14.8 g/dL (11.7-16.6) 02/07/22 03:50 Hct 41.7 % (42.0-52.0) L 02/07/22 03:50 MCV 85.8 fl (80-94) 02/07/22 03:50 MCH 30.5 pg (28.0-34.0) 02/07/22 03:50 MCHC 35.5 g/dL (30.0-36.0) 02/07/22 03:50 RDW 11.7 % (12.1-15.1) L 02/07/22 03:50 Plt Count 142 10^3/cmm (130-400) 02/07/22 03:50 MPV 11.2 fL (7.4-10.4) H 02/07/22 03:50 Neut % (Auto) 80.8 % 02/07/22 03:50 Lymph % (Auto) 12.1 % 02/07/22 03:50 Butler % (Auto) 6.1 % 02/07/22 03:50 Eos % (Auto) 0.1 % 02/07/22 03:50 Baso % (Auto) 0.2 % 02/07/22 03:50 Neut # (Auto) 13.58 10^3/uL (1.8-7.7) H 02/07/22 03:50 Lymph # (Auto) 2.0 10^3/uL (0.8-4.8) 02/07/22 03:50 Butler # (Auto) 1.0 10^3/uL (0.2-0.9) H 02/07/22 03:50 Eos # (Auto) 0.0 10^3/uL (0.0-0.8) 02/07/22 03:50 Baso # (Auto) 0.0 10^3/uL (0.0-0.1) 02/07/22 03:50 Nucleated RBC % (auto) 0 % 02/07/22 03:50 Nucleated RBCs # 0.0 /100WBC 02/07/22 03:50 Sodium 135 mmol/L (136-145) L 02/07/22 03:50 Potassium 4.4 mmol/L (3.5-5.1) 02/07/22 03:50 Chloride 99 mmol/L (98-107) 02/07/22 03:50 Carbon Dioxide 25 mmol/L (22-29) 02/07/22 03:50 Anion Gap 15.4 (5-19) 02/07/22 03:50 BUN 14 mg/dL (8-23) 02/07/22 03:50 Creatinine 0.7 mg/dL (0.7-1.2) 02/07/22 03:50 GFR Calculation 113.2 mL/min (90-130) 02/07/22 03:50 Glucose 198 mg/dL (65-115) H 02/07/22 03:50 POC Glucose 189 mg/dL (70-110) H 02/07/22 20:43 Estimat Average Glucose 154 02/07/22 03:50 Hemoglobin A1c 7.0 % (4.0-6.0) H 02/07/22 03:50 Calculated Osmolality 286 mOsm/kg (285-295) 02/07/22 03:50 Calcium 8.7 mg/dL (8.5-10.5) 02/07/22 03:50 Magnesium 2.2 mg/dL (1.7-2.3) 02/07/22 03:50 Total Bilirubin 0.4 mg/dL (0.15-1.2) 02/06/22 08:50 AST 14 U/L (0-40) 02/06/22 08:50 ALT 26 U/L (0-41) 02/06/22 08:50 Alkaline Phosphatase 87 IU/L (40-130) 02/06/22 08:50 C-Reactive Protein 119.4 mg/L (0.0-4.9) H 02/07/22 03:50 Total Protein 7.6 g/dL (6.6-8.7) 02/06/22 08:50 Albumin 4.5 g/dL (3.5-5.2) 02/06/22 08:50 Globulin 3.1 g/dL (1.3-4.6) 02/06/22 08:50 Triglycerides 90 mg/dL (0-150) 02/07/22 03:50 Cholesterol 127 mg/dL (0-200) 02/07/22 03:50 LDL Cholesterol, Calc 61 mg/dL (50-129) 02/07/22 03:50 HDL Cholesterol 48 mg/dL (60-100) L 02/07/22 03:50 LDL/HDL Ratio 1.27 RATIO (0.00-3.22) 02/07/22 03:50 Cholesterol/HDL Ratio 2.65 mg/dL (1.0-5.00) 02/07/22 03:50 Procalcitonin 0.06 ng/mL (0-0.5) 02/06/22 08:50 Micro: Microbiology 02/06/22 17:21 MRSA Culture - Final Nose A&P Assessment and plan (1) Sinusitis: Status: Acute (2) Facial cellulitis: Status: Acute (3) Type 2 diabetes mellitus: Status: Acute Plan 66M diabetic male p/w facial cellulitis over past 2 days in a background history of sinusitis over the past 7-10 days. Cellulitis may have been precipitated by skin excoriation by excessive rubbing with dry tissues, which in turn served as portal of entry for skin bacteria such as staphylococcus and streptococcus. Other possibility includes spread of infectious and inflammatory changes from paranasal sinuses into surrounding fascial planes. Recommend to obtain dedicated face and paranasal sinus CT to ascertain presence of any sinus &/or nasal abscess, bony involvement including orbits and extent of soft tissue changes. CT neck without any evidence of pharnygeal involvement. No noted proptosis. Obtain blood culture Continue abx coverage including Pseudomonal and MRSA coverage with Piperacillin/Tazobactam and Vancomycin. If patient fails to show improvement with broad spectrum coverage over the next 48-72 hrs, may need dedicated sinus culture to evaluate for infection with atypical organisms (AFB, fungal, etc,), though this seems less likely given rapidity of onset of symptoms. No current signs of meningoencephalitis &/or venous thrombosis. Use only soft baby wipes if needed to minimize trauma, Local application of mupirocin over B/L nares Recommendations discussed with hospitalist Dr. Rosa I will be away from the 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
--- NOTE | 2022-02-07 08:44 | CTR_ITS ---
PROCEDURE INFORMATION: Exam: CT Maxillofacial Without Contrast, Sinus Exam date and time: 02/07/2022 9:40 AM Age: 66 years old Clinical indication: Sinusitis; Acute TECHNIQUE: Imaging protocol: CT Maxillofacial without contrast. Focus on the sinuses. Radiation optimization: All CT scans at this facility use at least one of these dose optimization techniques: automated exposure control; mA and/or kV adjustment per patient size (includes targeted exams where dose is matched to clinical indication); or iterative reconstruction. COMPARISON: CT neck w con* [id number] 02/06/2022 1:11 PM RADIATION DOSE METRICS: Total DLP (mGy-cm): 612.9 FINDINGS: Frontal sinuses: There is minimal mucosal thickening of the inferior right frontal sinus. Ethmoid air cells: Moderate mucosal thickening of the right ethmoid air cells. Sphenoid sinuses: Near complete opacification of the right sphenoid sinus. Maxillary sinuses: Near complete opacification of the right maxillary sinus. There is soft tissue filling the right infundibulum, which appears narrowed. Small mucosal retention cyst in the left maxillary sinus. Nasal cavity: Hypertrophic inferior right nasal turbinate. Orbital cavities: Orbits are normal. Globes are unremarkable. Bones/joints: Unremarkable. Soft tissues: Within normal limits. CT/CT sinus wo con* [id number] IMPRESSION: Moderately advanced right-sided paranasal sinus disease as further detailed above.
[2022-02-07] MEDS: insulin lispro 100 unit/1 mL SUBCUT ×2 (08:51→12:30)
[2022-02-07] MEDS: sennosides-docusate Tablet 1 TAB PO (08:52)
[2022-02-07] MEDS: fluticasone nasal spray 16gm Btl 1 SPRAY NASAL ×2 (08:55→17:20)
--- NOTE | 2022-02-07 10:36 | PC.CHAP ---
Pastoral Care Encounter/Spiritual Assessment Type of Contact [] Declined hide sorter visit [] Patient/Family/Request visit [] Outpatient visit [] Follow-up visit [] Physician referral [] Code/Alert [x] Routine visit [] Staff referral [] Actively dying [] Patient sleeping [] Family support [] [] Out of room [] Palliative care [] [] Receiving care in room [] Pre-surgical visit [] Trauma [] Long length of stay [] ICU visit [] Other: Relational/Emotional Strength [x] Patient feels connected with others/family/visitors/staff [] Distress [] Loneliness/isolation [] Abandonment Spirituality of Patient x[] Person of Raina [] Attends Religion of their Raina [x] Believes in Prayer [] Reads Bible or Sikh materials [] There are Spiritual issues to be addressed Firefighting Equipment Specialist Interventions [x] Prayer [x] Active listening [x] Non-anxious presence [] Spiritual/emotional support [] Crisis/trauma care [] Spiritual counseling [] Bereavement support [] Provided bereavement packet [] Provided Bible/devotional materials [] Provided toy/stuffed animal, coloring book to patient or family member [] Provided Communion [] Anointing/[place] [] Salvation [x] Completed spiritual assessment [] Other: Impact on Illness or Injury [] Angry [] Fearful [] Anxious [] Often cries [] Exhaustion [] Unable to work [] Unable to attend religious [] Unable to walk/stand [] Unable to read [] Unable to drive [] Unable to eat/drink [] Unable to sleep [] Unable to be with family [] Patient intubated [] Other: Summary Time spent with patient 10 min
[2022-02-07 10:56] LABS: Chol HDL Ratio 2.65 mg/dL (1.0-5.00); Cholesterol 127 mg/dL (0-200); HDL Cholesterol 48 mg/dL (60-100); LDL Cholesterol Calculated 61 mg/dL (50-129); LDL HDL Ratio 1.27 RATIO (0.00-3.22); Triglycerides 90 mg/dL (0-150)
[2022-02-07 10:59] LABS: Estmated Average Glucose 154
[2022-02-07] MEDS: HYDROmorphone 1 mg/mL INJ 1 mL 0.2 MG IVP ×2 (11:08→20:32)
[2022-02-07] MEDS: acetaminophen 500 mg Tablet PO (11:08)
[2022-02-07 11:36] LABS: Glucose Point of Care 325 mg/dL (70-110)
--- NOTE | 2022-02-07 12:19 | PM.PN ---
Subjective Subjective: Appreciate ID recommendations We will do face CT scan this morning His redness has improved however swelling is almost at the same level Patient is endorsing feeling slightly better Continue IV antibiotics Discontinue steroids Leukocytosis could be related to use of steroids He has been afebrile No active wheezing or stridor Vitals/I&O/Wt Last Vital Signs Temp 98.1 F 02/07/22 11:43 Pulse 65 02/07/22 11:43 Resp 18 02/07/22 11:43 BP 142/72 02/07/22 11:43 Pulse Ox 97 02/07/22 11:43 02/06/22 02/07/22 02/07/22 22:59 06:59 14:59 Intake Total 720 / 1020 1350 / 2370 1170 / 1170 Balance 720 / 1020 1350 / 2370 1170 / 1170 Weight last 48 hrs Weight 89.811 kg Weight 89.811 kg Physical Exam Narrative: Patient is sitting comfortably in his bed No active stridor or wheezing Abdomen soft Active chest pain Saturating well Hemodynamically stable Redness improved however swelling is almost at the same level Crusting inside his nasal mucosa improved as well No tenderness or swelling around eyes No signs of headache no signs of meningitis No signs of enterocolitis Data : 02/07/22 03:50 02/07/22 03:50 Micro: Microbiology 02/06/22 17:21 MRSA Culture - Final Nose A&P Assessment and plan (1) Sinusitis: Status: Acute (2) Erysipelas: Status: Acute (3) Cellulitis: Status: Acute (4) Hyperglycemia: Status: Acute (5) Type 2 diabetes mellitus: Status: Acute Plan Type 2 diabetes newly diagnosed Hemoglobin A1c 7 hyperglycemia Discontinue steroids Consistent carb diet We will add metformin at the time of discharge Cellulitis of nose Likely related to trauma after COVID swab No meningoencephalitis Cover for MRSA and pseudomonal microorganisms for 1 more day We will discharge him on doxycycline and Augmentin He will follow-up with ENT surgeon Redness has improved No signs of swelling around his eyes or pain Full code Consistent carb diet DVT prophylaxis on board Plan to discharge him tomorrow Greatly appreciate recommendations from ID Attestations Medical Necessity Statement*: Discharge tomorrow Time Spent in Patient Care: 30 Coding Level of Care 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
[2022-02-07] MEDS: enoxaparin 40 mg/0.4 mL Syringe SUBCUT (13:41)
[2022-02-07 16:55] LABS: Glucose Point of Care 120 mg/dL (70-110)
--- NOTE | 2022-02-07 17:46 | PC.NURSE ---
Patient AAOx4, VSS, pain to face and head and reports its more of a throbbing pain. Facial area is red and edemitis, patient is cooperative. OOBTC and bathroom, no new events or needs at this time. Family at bedside, room clean and clutter free with call light in reach. Will report at bedside at shift change to oncoming nurse.
[2022-02-07 20:48] LABS: Glucose Point of Care 189 mg/dL (70-110)
[2022-02-08] VITALS (7 sets, daily range): BP systolic 127–166; BP diastolic 74–91; PULSE 67–81; RESP 16–18; TEMP 36.8–36.9; O2SAT 93–96
[2022-02-08] MEDS: acetaminophen 500 mg Tablet PO ×2 (00:01→04:27)
[2022-02-08 01:32] LABS: Basophils % 0.2 %; Eosinophils % 0.2 %; Hematocrit 41.2 % (42.0-52.0); Hemoglobin 14.7 g/dL (11.7-16.6); Lymphocytes # 2.6 10^3/uL (0.8-4.8); Lymphocytes % 17.7 %; Mean Corpuscular HGB Conc 35.7 g/dL (30.0-36.0); Mean Corpuscular Hemoglobin 30.9 pg (28.0-34.0); Mean Corpuscular Volume 86.6 fl (80-94); Mean Platelet Volume 11.1 fL (7.4-10.4); Neutrophils # 10.81 10^3/uL (1.8-7.7); Neutrophils % 74.2 %; Nucleated Red Blood Cells % 0 %; Platelet Count 137 10^3/cmm (130-400); Red Blood Count 4.76 10^6/uL (4.1-5.3); Red Cell Distribution Width 11.5 % (12.1-15.1); White Blood Count 14.6 10^3/uL (4.0-10.0)
[2022-02-08 01:49] LABS: Blood Urea Nitrogen 14 mg/dL (8-23); Calcium 8.4 mg/dL (8.5-10.5); Carbon Dioxide 26 mmol/L (22-29); Chloride 95 mmol/L (98-107); Creatinine Clr Calc Pharmacy 102.0109; Glucose 149 mg/dL (65-115); Osmolality Calculated 277 mOsm/kg (285-295); Sodium 132 mmol/L (136-145)
[2022-02-08 01:50] LABS: Vancomycin Trough 7.4 ug/mL (10-15)
[2022-02-08 01:54] LABS: Anion Gap 14.8 (5-19); Potassium 3.8 mmol/L (3.5-5.1)
[2022-02-08 01:57] LABS: Procalcitonin 0.06 ng/mL (0-0.5)
[2022-02-08] MEDS: vancomycin 1,250 MG/250 ML PIGGYBACK 250 MG IV (01:59)
[2022-02-08] MEDS: piperacillin-tazobactam 3.375 GM in sodium chloride 0.9% (plus) 50 ML IV (03:24)
[2022-02-08] MEDS: diphenhydrAMINE 25 mg Capsule PO (03:24)
--- NOTE | 2022-02-08 03:25 | PC.PHAR ---
Vancomycin trough on dosage of 1250mg IVPB every 12 hours is 7.4. Dosage is increased to 1250mg IVPB every 8 hours with another trough to be obtained before the fourth dose at this rate.
[2022-02-08 06:43] LABS: Glucose Point of Care 128 mg/dL (70-110)
--- NOTE | 2022-02-08 07:15 | PC.NURSE ---
Report received from Kelley MALDONADO at this time.
[2022-02-08] MEDS: sennosides-docusate Tablet 1 TAB PO (09:31)
[2022-02-08] MEDS: fluticasone nasal spray 16gm Btl 1 SPRAY NASAL (09:33)
--- NOTE | 2022-02-08 10:21 | PM.TDS ---
Transfer Summary Providers Date of Admission: 02/06/22 10:23 Date of Discharge/Transfer: 02/08/22 Attending Provider at Admission: Nuris Rosa MD Attending Provider at Transfer: Nuris Rosa MD Primary Care Provider: JOJO Ramirez Transfer Plans: Anticipated date of transfer: 02/08/22. Diagnoses at Discharge Discharge Diagnosis (1) Sinusitis: Status: Acute (2) Facial cellulitis: Status: Acute (3) Type 2 diabetes mellitus: Status: Acute Reason for Visit Reason for Visit face swelling after taking steroid Hospital Course Hospital Course This note was written by Dr. 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 Per patient he has been experiencing an episode of sinusitis for the past 7-10 days , managed by oral decongestants and oral steroids without significant change in symptoms. He has a h/o chronic allergies and recurrent seasonal sinusitis, which usually resolved with decongestants and Z ascencion. Describes his symptoms as rhinorrhea, nasal stuffiness and sinus fullness. On monday (today is Monday), patient went out fishing and then had to swim in the river to recover an item that had fallen over. Did not deep dive per history. On Monday evening he noticed that tip of his nose had started becoming red, warm and tender with changes extending more proximally into the nose. Also developed upper lip swelling. Presented to the ER due to concerns of cellulitis. CT neck was performed which showed patent airway, no pharyngeal, floor of mouth or tonsillar involvement. He denies any fever. Experienced chills this morning with some diaphoresis. Denies any cough, dyspnea or chest pain. No past h/o similar symptoms. Does not recall any obvious trauma to his nose or lip, except for excessive rubbing with tissue paper to clear nasal discharge. No blood in discharge. Denies past h/o herpetic infection. He inserted a rapid Ag covid swab into both nostrils on Monday morning. no past h/o fungal sinusitis. No h/o animal bite over the site. Hba1c at 7.0 Additional information During his hospitalization he received vancomycin and Zosyn, initially he did get steroids which were discontinued later after we received hemoglobin A1c level, he also received Benadryl, opioids, decongestant and Flonase, his leukocytosis is ranging between 14-16,000, he has remained afebrile, no signs of meningoencephalitis, on 02/08 his nose redness/erythema and swelling has worsened, on Monday CT scan of sinuses showed advanced right sided paranasal sinuses disease no air-fluid level, our concern is related to probably an occult abscess which is not being captured on CT scan, there is also yellow crusting in his nares, considering worsening of his symptoms and ENT not being on-call decision was made to transfer him to [facility] and because hospitals were at capacity, patient and his both in agreement. Case was presented to ENT surgeon Dr. Augustine, who accepted the patient. Dr. Begum was notified, who is in agreement as well Cultures remain negative so far MRSA nares not detected by PCR on 02/07, Blood cultures are negative 02/07 Procedure(s): CT sinus wo con* [id number] Accession Number(s): [id number] Report Number: [id number] PROCEDURE INFORMATION: Exam: CT Maxillofacial Without Contrast, Sinus Exam date and time: 02/07/2022 9:40 AM Age: 66 years old Clinical indication: Sinusitis; Acute TECHNIQUE: Imaging protocol: CT Maxillofacial without contrast. Focus on the sinuses. Radiation optimization: All CT scans at this facility use at least one of these dose optimization techniques: automated exposure control; mA and/or kV adjustment per patient size (includes targeted exams where dose is matched to clinical indication); or iterative reconstruction. COMPARISON: CT neck w con* [id number] 02/06/2022 1:11 PM RADIATION DOSE METRICS: Total DLP (mGy-cm): 612.9 FINDINGS: Frontal sinuses: There is minimal mucosal thickening of the inferior right frontal sinus. Ethmoid air cells: Moderate mucosal thickening of the right ethmoid air cells. Sphenoid sinuses: Near complete opacification of the right sphenoid sinus. Maxillary sinuses: Near complete opacification of the right maxillary sinus. There is soft tissue filling the right infundibulum, which appears narrowed. Small mucosal retention cyst in the left maxillary sinus. Nasal cavity: Hypertrophic inferior right nasal turbinate. Orbital cavities: Orbits are normal. Globes are unremarkable. Bones/joints: Unremarkable. Soft tissues:? Within normal limits. CT/CT sinus wo con* [id number] IMPRESSION: Moderately advanced right-sided paranasal sinus disease as further detailed above. Date of Service: 02/06/22 Procedure(s): CT neck w con* [id number] Accession Number(s): [id number] Report Number: [id number] PROCEDURE INFORMATION: Exam: CT Neck With Contrast Exam date and time: 02/06/2022 1:11 PM Age: 66 years old Clinical indication: Other: Facial pain; Additional info: Red nose and face pain TECHNIQUE: Imaging protocol: Computed tomography of the neck with contrast. Radiation optimization: All CT scans at this facility use at least one of these dose optimization techniques: automated exposure control; mA and/or kV adjustment per patient size (includes targeted exams where dose is matched to clinical indication); or iterative reconstruction. Contrast material: OMNIPAQUE 350; Contrast volume: 75 ml; Contrast route: INTRAVENOUS (IV);? COMPARISON: No relevant prior studies available. RADIATION DOSE METRICS: Total DLP (mGy-cm): 533.79 FINDINGS: Paranasal sinuses: There is mucosal thickening in the paranasal sinuses with near complete opacification of the right maxillary, right ethmoid and sphenoid sinuses. Pharynx: Unremarkable. No significant tonsillar enlargement. Larynx: Unremarkable. Epiglottis is normal. Prevertebral and retropharyngeal spaces: Unremarkable. Salivary glands: Normal. Glands are normal in size. Thyroid: Normal. No enlarged or calcified nodules.? Lymph nodes: Unremarkable. No lymphadenopathy. Trachea: Visualized trachea is unremarkable. Lungs: Unremarkable as visualized. Bones/joints: Chronic degenerative changes are present in the cervical spine with disc space narrowing sclerosis and osteophytes. Soft tissues: Unremarkable. No significant soft tissue swelling. CT/CT neck w con* [id number] IMPRESSION: Paranasal sinusitis with near complete opacification of the right maxillary, right ethmoid and sphenoid sinuses. ? Physical Exam Narrative: Erythema and swelling of nose and upper lip has worsened Noticed involving his left-sided cheek, anterior cervical lymphadenopathy as well No signs of meningoencephalitis He is awake and alert Yellow crusting lesion in his nares noted No active stridor or wheezing He is breathing well on room air He is breathing through his mouth Awake and alert S1, S2 Afebrile TS Data Studies Completed and Pending Pending at discharge Category Date Time Status Blood Culture AM LABS Lab 02/08/22 01:21 Results Vancomycin Trough Timed Lab 02/10/22 00:00 Ordered Labs from last 24 hours 02/08/22 02/08/22 02/08/22 06:39 01:16 01:16 WBC 14.6 H RBC 4.76 Hgb 14.7 Hct 41.2 L MCV 86.6 MCH 30.9 MCHC 35.7 RDW 11.5 L Plt Count 137 MPV 11.1 H Neut % (Auto) 74.2 Lymph % (Auto) 17.7 [place] % (Auto) 7.0 Eos % (Auto) 0.2 Baso % (Auto) 0.2 Neut # (Auto) 10.81 H Lymph # (Auto) 2.6 [place] # (Auto) 1.0 H Eos # (Auto) 0.0 Baso # (Auto) 0.0 Nucleated RBC % (auto) 0 Nucleated RBCs # 0.0 Sodium 132 L Potassium 3.8 Chloride 95 L Carbon Dioxide 26 Anion Gap 14.8 BUN 14 Creatinine 0.8 GFR Calculation 97.0 Glucose 149 H POC Glucose 128 H Estimat Average Glucose Hemoglobin A1c Calculated Osmolality 277 L Calcium 8.4 L Triglycerides Cholesterol LDL Cholesterol, Calc HDL Cholesterol LDL/HDL Ratio Cholesterol/HDL Ratio Procalcitonin 0.06 Vancomycin Trough 02/08/22 02/07/22 02/07/22 01:16 20:43 16:51 WBC RBC Hgb Hct MCV MCH MCHC RDW Plt Count MPV Neut % (Auto) Lymph % (Auto) [place] % (Auto) Eos % (Auto) Baso % (Auto) Neut # (Auto) Lymph # (Auto) [place] # (Auto) Eos # (Auto) Baso # (Auto) Nucleated RBC % (auto) Nucleated RBCs # Sodium Potassium Chloride Carbon Dioxide Anion Gap BUN Creatinine GFR Calculation Glucose POC Glucose 189 H 120 H Estimat Average Glucose Hemoglobin A1c Calculated Osmolality Calcium Triglycerides Cholesterol LDL Cholesterol, Calc HDL Cholesterol LDL/HDL Ratio Cholesterol/HDL Ratio Procalcitonin Vancomycin Trough 7.4 L 02/07/22 02/07/22 02/07/22 11:29 03:50 03:50 WBC RBC Hgb Hct MCV MCH MCHC RDW Plt Count MPV Neut % (Auto) Lymph % (Auto) [place] % (Auto) Eos % (Auto) Baso % (Auto) Neut # (Auto) Lymph # (Auto) [place] # (Auto) Eos # (Auto) Baso # (Auto) Nucleated RBC % (auto) Nucleated RBCs # Sodium Potassium Chloride Carbon Dioxide Anion Gap BUN Creatinine GFR Calculation Glucose POC Glucose 325 H Estimat Average Glucose 154 Hemoglobin A1c 7.0 H Calculated Osmolality Calcium Triglycerides 90 Cholesterol 127 LDL Cholesterol, Calc 61 HDL Cholesterol 48 L LDL/HDL Ratio 1.27 Cholesterol/HDL Ratio 2.65 Procalcitonin Vancomycin Trough Completed Studies During Hospitalization Category Date Time Status CT neck w con* [id number] Stat Cat Scan 02/06/22 11:[address] sinus wo con* [id number] Routine Cat Scan 02/07/22 08:44 Completed Laboratory Last Values WBC 14.6 10^3/uL (4.0-10.0) H 02/08/22 01:16 RBC 4.76 10^6/uL (4.1-5.3) 02/08/22 01:16 Hgb 14.7 g/dL (11.7-16.6) 02/08/22 01:16 Hct 41.2 % (42.0-52.0) L 02/08/22 01:16 MCV 86.6 fl (80-94) 02/08/22 01:16 MCH 30.9 pg (28.0-34.0) 02/08/22 01:16 MCHC 35.7 g/dL (30.0-36.0) 02/08/22 01:16 RDW 11.5 % (12.1-15.1) L 02/08/22 01:16 Plt Count 137 10^3/cmm (130-400) 02/08/22 01:16 MPV 11.1 fL (7.4-10.4) H 02/08/22 01:16 Neut % (Auto) 74.2 % 02/08/22 01:16 Lymph % (Auto) 17.7 % 02/08/22 01:16 [place] % (Auto) 7.0 % 02/08/22 01:16 Eos % (Auto) 0.2 % 02/08/22 01:16 Baso % (Auto) 0.2 % 02/08/22 01:16 Neut # (Auto) 10.81 10^3/uL (1.8-7.7) H 02/08/22 01:16 Lymph # (Auto) 2.6 10^3/uL (0.8-4.8) 02/08/22 01:16 [place] # (Auto) 1.0 10^3/uL (0.2-0.9) H 02/08/22 01:16 Eos # (Auto) 0.0 10^3/uL (0.0-0.8) 02/08/22 01:16 Baso # (Auto) 0.0 10^3/uL (0.0-0.1) 02/08/22 01:16 Nucleated RBC % (auto) 0 % 02/08/22 01:16 Nucleated RBCs # 0.0 /100WBC 02/08/22 01:16 Sodium 132 mmol/L (136-145) L 02/08/22 01:16 Potassium 3.8 mmol/L (3.5-5.1) 02/08/22 01:16 Chloride 95 mmol/L (98-107) L 02/08/22 01:16 Carbon Dioxide 26 mmol/L (22-29) 02/08/22 01:16 Anion Gap 14.8 (5-19) 02/08/22 01:16 BUN 14 mg/dL (8-23) 02/08/22 01:16 Creatinine 0.8 mg/dL (0.7-1.2) 02/08/22 01:16 GFR Calculation 97.0 mL/min (90-130) 02/08/22 01:16 Glucose 149 mg/dL (65-115) H 02/08/22 01:16 POC Glucose 128 mg/dL (70-110) H 02/08/22 06:39 Estimat Average Glucose 154 02/07/22 03:50 Hemoglobin A1c 7.0 % (4.0-6.0) H 02/07/22 03:50 Calculated Osmolality 277 mOsm/kg (285-295) L 02/08/22 01:16 Calcium 8.4 mg/dL (8.5-10.5) L 02/08/22 01:16 Magnesium 2.2 mg/dL (1.7-2.3) 02/07/22 03:50 Total Bilirubin 0.4 mg/dL (0.15-1.2) 02/06/22 08:50 AST 14 U/L (0-40) 02/06/22 08:50 ALT 26 U/L (0-41) 02/06/22 08:50 Alkaline Phosphatase 87 IU/L (40-130) 02/06/22 08:50 C-Reactive Protein 119.4 mg/L (0.0-4.9) H 02/07/22 03:50 Total Protein 7.6 g/dL (6.6-8.7) 02/06/22 08:50 Albumin 4.5 g/dL (3.5-5.2) 02/06/22 08:50 Globulin 3.1 g/dL (1.3-4.6) 02/06/22 08:50 Triglycerides 90 mg/dL (0-150) 02/07/22 03:50 Cholesterol 127 mg/dL (0-200) 02/07/22 03:50 LDL Cholesterol, Calc 61 mg/dL (50-129) 02/07/22 03:50 HDL Cholesterol 48 mg/dL (60-100) L 02/07/22 03:50 LDL/HDL Ratio 1.27 RATIO (0.00-3.22) 02/07/22 03:50 Cholesterol/HDL Ratio 2.65 mg/dL (1.0-5.00) 02/07/22 03:50 Procalcitonin 0.06 ng/mL (0-0.5) 02/08/22 01:16 Vancomycin Trough 7.4 ug/mL (10-15) L 02/08/22 01:[address] 02/06/22 11:45 IMPRESSION: Paranasal sinusitis with near complete opacification of the right maxillary, right ethmoid and sphenoid sinuses. Sinuses CT 02/07/22 08:44 IMPRESSION: Moderately advanced right-sided paranasal sinus disease as further detailed above. Recent Clincial Data Last Vital Signs Temp 98.3 F 02/08/22 04:00 Pulse 67 02/08/22 09:32 Resp 16 02/08/22 09:32 BP 132/74 02/08/22 07:23 Pulse Ox 94 02/08/22 09:32 Vital Signs Temp Pulse Resp BP Pulse Ox 02/08/22 09:32 67 16 94 02/08/22 07:23 76 16 132/74 93 02/08/22 04:00 98.3 F 81 18 166/91 93 02/08/22 00:00 67 18 162/88 95 Intake & Output/Weight 02/06/22 02/07/22 02/08/22 02/09/22 06:59 06:59 06:59 06:59 Intake Total 2370 / 2370 2835 / 2835 290 / 290 Balance 2370 / 2370 2835 / 2835 290 / 290 Weight 89.811 kg Vitals Last Vital Signs Temp 98.3 F 02/08/22 04:00 Pulse 67 02/08/22 09:32 Resp 16 02/08/22 09:32 BP 132/74 02/08/22 07:23 Pulse Ox 94 02/08/22 09:32 TS Medications Medications Acetaminophen (Acetaminophen 500 Mg Tablet) 500 mg PO Q4H PRN PRN Reason: fever Last Admin: 02/08/22 04:27 Dose: 500 mg Documented by: Albuterol/Ipratropium (Ipratropium-Albuterol 3 Ml Neb) 3 ml INHALATION Q6H PRN PRN Reason: SHORTNESS OF BREATH Dextrose (Dextrose 50% Syringe 50 Ml) 25 ml IVP ONCE PRN; Protocol PRN Reason: hypoglycemia protocol Dextrose (Dextrose 50% Syringe 50 Ml) 50 ml IVP PRN PRN; Protocol PRN Reason: hypoglycemia protocol Diphenhydramine HCl (Diphenhydramine 25 Mg Capsule) 25 mg PO Q6H PRN PRN Reason: ITCHING Last Admin: 02/08/22 03:24 Dose: 25 mg Documented by: Enoxaparin Sodium (Enoxaparin 40 Mg/0.4 Ml Syringe) 40 mg SUBCUT Q24H [facility] Last Admin: 02/07/22 13:41 Dose: 40 mg Documented by: Epinephrine (Racepinephrine 0.5 Ml Neb) 0.5 ml INHALATION Q8H PRN PRN Reason: SHORTNESS OF BREATH Fluticasone Propionate (Fluticasone Nasal [place] 16gm Btl) 1 spray NASAL BID [facility] Last Admin: 02/08/22 09:33 Dose: 1 spray Documented by: Glucagon (Glucagon 1 Mg/Ml Inj 1 Ml) 1 mg IM ONCE PRN; Protocol PRN Reason: Adult Acute Hypoglycemia Prot. Hydromorphone HCl (Hydromorphone 1 Mg/Ml Inj 1 Ml) 0.2 mg IVP Q4H PRN PRN Reason: pain Last Admin: 02/07/22 20:32 Dose: 0.2 mg Documented by: Piperacillin Sod/Tazobactam (Sod 3.375 gm/ Sodium Chloride) 50 mls @ 12.5 mls/hr IV Q8H [facility]; Protocol Last Infusion: 02/08/22 07:24 Dose: Infused Documented by: Dextrose (D5w) 500 mls @ 100 mls/hr IV ONCE PRN; Protocol PRN Reason: Adult Acute Hypoglycemia Prot Vancomycin/PEG/NADA/Lysine/Water (Vancocin) 1,250 mg in 250 mls @ 250 mls/hr IV Q8H [facility] Insulin Human Lispro (Insulin Lispro 100 Unit/1 Ml) 0 unit SUBCUT TIDWM [facility]; Protocol Last Admin: 02/08/22 09:18 Dose: Not Given Documented by: Morphine Sulfate (Morphine Ir 15 Mg Tablet) 15 mg PO Q6H PRN PRN Reason: pAIN Last Admin: 02/07/22 18:15 Dose: 15 mg Documented by: Mupirocin (Mupirocin Oint 22 Gm) 1 applic NOSTRIL-B BID [facility] Stop: 02/13/22 08:59 Last Admin: 02/08/22 10:15 Dose: Not Given Documented by: Ondansetron HCl (Ondansetron 2 Mg/Ml Sdv 2 Ml) 4 mg IVP Q6H PRN PRN Reason: NAUSEA AND VOMITING Phenylephrine HCl (Phenylephrine 0.25% Nasal 15 Ml Btl) 1 spray NASAL Q6H PRN PRN Reason: nasasl congestoin Senna/Docusate Sodium (Sennosides-Docusate Tablet) 1 tab PO DAILY [facility] Last Admin: 02/08/22 09:31 Dose: 1 tab Documented by: Discontinued Medications Dexamethasone (Dexamethasone 4 Mg/Ml Inj) 4 mg IVP ONCE ONE Stop: 02/06/22 13:43 Last Admin: 02/06/22 14:41 Dose: 4 mg Documented by: Vancomycin HCl 1,500 mg/ (Sodium Chloride) 250 mls @ 166.667 mls/hr IV ONCE ONE; Protocol Stop: 02/06/22 13:14 Last Infusion: 02/06/22 14:56 Dose: Infused Documented by: Sodium Chloride (Sodium Chloride 0.9%) 1,000 mls @ 75 mls/hr IV .[id number] [facility] Last Infusion: 02/07/22 12:31 Dose: Infused Documented by: Vancomycin/PEG/NADA/Lysine/Water (Vancocin) 1,250 mg in 250 mls @ 250 mls/hr IV Q12H [facility] Last Infusion: 02/08/22 03:23 Dose: Infused Documented by: Dextrose (D5w) 500 mls @ 100 mls/hr IV ONCE PRN; Protocol PRN Reason: Adult Acute Hypoglycemia Prot Iohexol (Iohexol 350 Mg/Ml 100 Ml Btl) 0 ml IV ONCE ONE Stop: 02/06/22 13:10 Last Admin: 02/06/22 13:09 Dose: 75 ml Documented by: Methylprednisolone Sodium Succinate (Methylprednisolone Sod Succ 40 Mg/Ml Inj) 30 mg IVP Q12H [facility] Morphine Sulfate (Morphine 4 Mg/Ml Sdv 1 Ml) 2 mg IVP ONCE ONE Stop: 02/06/22 11:44 Last Admin: 02/06/22 11:50 Dose: 2 mg Documented by: Oxycodone HCl (Oxycodone 10 Mg Er (12 Hr) Tablet) 10 mg PO ONCE ONE Stop: 02/08/22 10:15 Allergies meloxicam Allergy (Verified 01/24/22 14:04) ALGY-Swell Lip/Tongue/Throat Lips swelling and sores in mouth Home Medications albuterol sulfate 90 mcg/actuation aerosol inhaler (Ventolin HFA) 2 puff INHALATION Q6H PRN #8.5 g 10/23/21 [Rx Confirmed 02/06/22] amlodipine 5 mg tablet 5 mg PO DAILY 02/06/22 [History Confirmed 02/06/22] atorvastatin 20 mg tablet 20 mg PO DAILY 02/06/22 [History Confirmed 02/06/22] fluticasone propionate 50 mcg/actuation nasal spray,suspension 2 spray INTRANASAL DAILY PRN 02/06/22 [History Confirmed 02/06/22] prednisone 20 mg tablet 40 mg PO DAILY 02/06/22 [History Confirmed 02/06/22] promethazine-DM 6.25 mg-15 mg/5 mL oral syrup 5 - 10 ml PO Q6H PRN 02/06/22 [History Confirmed 02/06/22] Discharge Plan Discharge Patient Disposition: Home Condition: Stable Prescriptions: No Action albuterol sulfate [Ventolin HFA] 90 mcg/actuation HFA aerosol inhaler 2 puff inhalation Q6H PRN (Reason: shortness of breath or wheezing) Qty: 8.5 0RF promethazine-DM 6.25-15 mg/5 mL syrup 5 - 10 ml PO Q6H PRN (Reason: Cough) 0RF atorvastatin 20 mg tablet 20 mg PO DAILY 0RF prednisone 20 mg tablet 40 mg PO DAILY 0RF amlodipine 5 mg tablet 5 mg PO DAILY 0RF fluticasone propionate 50 mcg/actuation spray,suspension 2 spray INTRANASAL DAILY PRN (Reason: Nasal Congestion) 0RF Referrals: Caridad Funk FNP [Primary Care Provider] - Patient Instructions: Opioid Safety Transfer Attestations Time Spent in Transfer Care: less than 30 min Quality Metrics Clinical Quality Measures [ No reported AMI, CVA or VTE this stay] Coding Level of Care Code Acute [facility] Fwd Diagnoses Sinusitis J32.9 Facial cellulitis L03.211 Type 2 diabetes mellitus E11.9
--- NOTE | 2022-02-08 10:26 | PC.NURSE ---
Attempted to call report to [place] at this time. Charge nurse is in with another patient and will call me back.
[2022-02-08] MEDS: oxyCODONE 10 mg ER (12 HR) Tablet PO (10:27)
--- NOTE | 2022-02-08 10:51 | PC.NURSE ---
Report call to [place] to Catalina Howell/Carmita charge nurse at this time.
[2022-02-08 11:41] LABS: Glucose Point of Care 138 mg/dL (70-110)
--- NOTE | 2022-02-08 12:04 | PC.NURSE ---
[facility] here to transport patient to [place] for ENT. Patient is A&Ox4. Respirations even and non-labored on room air.
== END 2022-02-08 11:55 | disposition short-term general hospital (02) | DRG 155 ==
LOC: ER 08:41 → MEDSURG 13:22
PROVIDERS: Admitting Provider Internal Medicine; Emergency Provider Emergency Medicine; PCP Nurse Practitioner; Visit Provider Internal Medicine
DX: J34.0 Abscess, furuncle and carbuncle of nose (principal); L03.211 Cellulitis of face; L73.9 Follicular disorder, unspecified; I10 Essential (primary) hypertension; A46 Erysipelas; J32.4 Chronic pansinusitis; E11.65 Type 2 diabetes mellitus with hyperglycemia
CPT/HCPCS: 36415; 36416; 70486; 70491; 80048; 80053; 80061; 80202; 82962; 83036; 83735; 84145; 85025; 86140; 87040; 87641; 96365; 96367; 96372; 96375; 99285; J1100; J1170; J1650; J1815; J2270; J2543; J3370; J7030; J7050; Q9967

== ENCOUNTER 2022-04-29 07:34 | Oncology outpatient (recurring) (ONCR) | payer MEDICARE, BC, SELFPAY ==
[2022-04-29 07:58] LABS: Basophils % 0.2 %; Eosinophils # 0.1 10^3/uL (0.0-0.8); Eosinophils % 1.3 %; Hematocrit 44.3 % (42.0-52.0); Hemoglobin 14.8 g/dL (11.7-16.6); Lymphocytes # 1.7 10^3/uL (0.8-4.8); Mean Corpuscular HGB Conc 33.4 g/dL (30.0-36.0); Mean Corpuscular Hemoglobin 30.1 pg (28.0-34.0); Mean Corpuscular Volume 90.2 fl (80-94); Mean Platelet Volume 11.5 fL (7.4-10.4); Monocytes # 0.3 10^3/uL (0.2-0.9); Neutrophils # 2.57 10^3/uL (1.8-7.7); Neutrophils % 55.3 %; Nucleated Red Blood Cells % 0 %; Platelet Count 127 10^3/cmm (130-400); Red Blood Count 4.91 10^6/uL (4.1-5.3); White Blood Count 4.7 10^3/uL (4.0-10.0)
[2022-04-29 08:12] LABS: Alanine Aminotransferase 27 U/L (0-41); Albumin Level 4.4 g/dL (3.5-5.2); Alkaline Phosphatase 74 U/L (40-130); Aspartate Amino Transferase 20 U/L (0-40); Blood Urea Nitrogen 15 mg/dL (8-23); Calcium 9.4 mg/dL (8.5-10.5); Carbon Dioxide 29 mmol/L (22-29); Chloride 102 mmol/L (98-107); Globulin 2.7 g/dL (1.3-4.6); Glomerular Filtration Rate 84.4 mL/min (90-130); Glucose 147 mg/dL (65-115); Osmolality Calculated 294 mOsm/kg (285-295); Sodium 140 mmol/L (136-145); Total Bilirubin 0.5 mg/dL (0.15-1.2); Total Protein 7.1 g/dL (6.6-8.7)
== END 2022-05-06 23:59 | disposition home or self-care (01) ==
PROVIDERS: PCP Nurse Practitioner; Visit Provider Nurse Practitioner Family
DX: D69.6 Thrombocytopenia, unspecified (principal)
CPT/HCPCS: 36415; 80053; 85025; 99213; 99214

== ENCOUNTER 2022-10-23 16:03 | Emergency (ER) | payer MEDICARE, BC, SELFPAY ==
--- NOTE | 2022-10-23 16:05 | XRR_ITS ---
PROCEDURE INFORMATION: Exam: XR Chest Exam date and time: 10/23/2022 4:15 PM Age: 67 years old Clinical indication: Cough TECHNIQUE: Imaging protocol: Radiologic exam of the chest. Views: 1 view. COMPARISON: CT neck w con* [id number] 02/06/2022 1:11 PM FINDINGS: Lungs: Unremarkable. No consolidation. Pleural spaces: Unremarkable. No pleural effusion. No pneumothorax. Heart/Mediastinum: Unremarkable. No cardiomegaly. Bones/joints: Unremarkable. XR/XR chest 1V portable [id number] IMPRESSION: No acute findings.
[2022-10-23 16:07] VITALS: BP 156/115; PULSE 112; RESP 20; TEMP 36.8; O2SAT 92; BMI 27.2
--- NOTE | 2022-10-23 16:22 | W.ED.COVID ---
HPI - COVID General: Chief Complaint: COVID symptoms Stated Complaint: fever,coughing,Ear pain Time Seen by Provider: 10/23/22 16:08 Source: patient Mode of arrival: ambulatory Limitations: no limitations History of Present Illness: 67-year-old male states over the last 3 days has had cough congestion along with some low-grade fevers. He states that his grandkids of all been sick with viral illnesses as well and has been around them. He denies any shortness of breath he states he does use an inhaler at home and has been using it a little more often denies any chest pain denies any vomiting COVID 19 common symptoms: positive fever(s), non-productive cough and body aches; negative headache(s), throat pain, nausea, vomiting or diarrhea COVID 19 other sytmptoms: negative chest pain COVID Results: SARS-CoV-2 Antigen (Rapid) negative (Negative) 10/23/22 16:22 Review of Systems Const: Reports: fever(s) and body aches Eyes: Denies: blurry vision or eye discomfort ENMT: Denies: throat pain or dental pain Card: Denies: chest pain Resp: Reports: non-productive cough GI: Denies: abdominal pain, nausea, vomiting or diarrhea : Denies: dysuria Musc: Denies: neck pain or back pain Skin/Breast: Denies: rash Neuro: Denies: headache(s) Psych: Denies: depression Gómez/Lymph: Denies: easy bruising All/Imm: Denies: urticaria PFSH ED PFSH: Medical History Arthritis Essential (primary) hypertension Family history of melanoma Hiatal hernia History of nonmelanoma skin cancer Hx of fracture of finger Left hydrocele Mild acid reflux Scrotal swelling Thrombocytopenia Surgical History Hx of eye surgery Family History Father Healthy adult Mother , AT 84 Dementia Stroke Other Cancer Social History Smoking and tobacco status: never smoked Alcohol intake: never Marital status: Current occupational status: retired Physical Exam Const: COMMON NORMALS: no acute distress, patient oriented x3 and healthy appearing HENMT: COMMON NORMALS: normocephalic and atraumatic HEAD & SCALP: normocephalic and atraumatic Eye: COMMON NORMALS: Equal, round and reactive pupils present and EOMs intact bilaterally PUPIL: Yes Equal, round and reactive pupils present Neck/C-Spine: COMMON NORMALS: full ROM and supple Chest: COMMONS NORMALS: normal inspection of the chest and normal palpation of entire chest wall Resp: COMMON NORMALS: normal respiratory effort, No retractions, No use of accessory muscles and clear to auscultation bilaterally AUSCULTATION: clear to auscultation bilaterally Cardio: COMMON NORMALS: regular rate, regular rhythm and No murmurs present (Cardio) RATE: regular rate RHYTHM: regular rhythm GI: COMMON NORMALS: Normal to inspection, nondistended, normoactive bowel sounds present, Soft to palpation, non-tender and no masses PALPATION: Yes Soft to palpation Extremity: COMMON NORMALS: normal to inspection and full ROM Neuro: COMMON NORMALS: patient oriented x3, moves all extremities and no focal motor deficits Psych: COMMON NORMALS: mental status grossly normal, Normal thought process present and cooperative THOUGHT PROCESS: Normal thought process present Skin: COMMON NORMALS: no rashes or lesions noted and no wounds GENERAL SKIN EXAM: no rashes or lesions noted Course Vital Signs: Vital signs: Vital Signs Temperature 98.2 F 10/23/22 16:07 Pulse Rate 107 H 10/23/22 16:47 Respiratory Rate 16 10/23/22 16:43 Blood Pressure 156/115 10/23/22 16:07 Pulse Oximetry 95 10/23/22 16:43 Oxygen Delivery Me thod 10/23/22 16:43 MDM - COVID Medical Decision Making Patient presents here with cough congestion likely upper respiratory infection COVID flu are negative he is well-appearing here in no distress chest x-ray shows no pneumonia did give him Decadron he is to use his inhaler at home follow-up with his PCP and return if worsening he understands agrees to plan. Lab Data Radiology Impressions Chest X-Ray 10/23/22 16:05 IMPRESSION: No acute findings. Laboratory Results Influenza Type A Ag negative (Negative) 10/23/22 16:22 Influenza Type B Ag negative (Negative) 10/23/22 16:22 SARS-CoV-2 Ag (Rapid) negative (Negative) 10/23/22 16:22 SARS-CoV-2 Antigen (Rapid) negative (Negative) 10/23/22 16:22 Discharge Plan Discharge Patient Disposition: Home Clinical Impression: Upper respiratory infection Condition: Stable Prescriptions: No Action mupirocin 2 % ointment topical clobetasol 0.05 % ointment 1 applic topical BID 14 Days Qty: 45 0RF Rx Instructions: to affected areas on the trunk and extremities amoxicillin 875 mg tablet 875 mg PO triamcinolone acetonide 0.1 % ointment 1 applic topical BID Qty: 80 0RF Rx Instructions: Apply to affected area no more than 2 weeks per month. Not for face. 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
[2022-10-23] MEDS: dexamethasone 10 mg/mL INJ IM (16:40)
[2022-10-23 16:43] VITALS: PULSE 105; RESP 16; O2SAT 95
[2022-10-23] MEDS: albuterol 2.5 mg/3 mL Neb INHALATION (16:43)
[2022-10-23 16:47] VITALS: PULSE 107
[2022-10-23 16:53] LABS: Influenza A by IFA negative (Negative); Influenza B by IFA negative (Negative); SARS Covid-2 Antigen negative (Negative)
[2022-10-23 18:22] VITALS: BP 134/71; PULSE 84; RESP 18
== END 2022-10-23 18:38 | disposition home or self-care (01) ==
PROVIDERS: Emergency Provider Emergency Medicine; PCP Physician Assistant
DX: J06.9 Acute upper respiratory infection, unspecified (principal); Z20.822 Contact with and (suspected) exposure to COVID-19; I10 Essential (primary) hypertension
CPT/HCPCS: 71045; 87426; 87804; 94640; 96372; 99284; J1100; J7613

== ENCOUNTER 2022-11-09 20:32 | Emergency (ER) | payer MEDICARE, BC, SELFPAY ==
[2022-11-09 20:36] VITALS: BP 147/81; PULSE 93; RESP 16; TEMP 36.5; O2SAT 95; BMI 26.6
--- NOTE | 2022-11-09 20:40 | XRR_ITS ---
PROCEDURE INFORMATION: Exam: XR Left Foot Exam date and time: 11/09/2022 8:45 PM Age: 67 years old Clinical indication: Injury or trauma; Other: Blunt trauma; Foot; Left TECHNIQUE: Imaging protocol: Radiologic exam of the left foot. Views: 3 or more views. COMPARISON: No relevant prior studies available. FINDINGS: Bones/joints: Osseous structures are intact. Negative for fracture. Joint spaces are preserved. Soft tissues: Normal. XR/XR foot LT min 3V* [id number] IMPRESSION: No acute findings.
[2022-11-09 21:10] VITALS: BP 162/98; PULSE 98; RESP 16; O2SAT 94
--- NOTE | 2022-11-09 21:15 | W.ED.EXTPRO ---
HPI - Extremity Problem General: Chief complaint: Extremity Injury, Lower Stated complaint: Injury Left Foor Time Seen by Provider: 11/09/22 20:53 Source: patient Mode of arrival: ambulatory Limitations: no limitations History of Present Illness: 67-year-old male 67-year-old male states that he was cutting down in [place] and had fell on his left foot this happened this afternoon he states he has a contusion to his midfoot along with pain. Rates the pain a 4 out of 10 he is able to ambulate denies any other injuries denies any laceration. Associated symptoms: Deny chest pain, fever(s) or rash Review of Systems Const: Denies: fever(s), chills, body aches or change in appetite Eyes: Denies: blurry vision or eye discomfort ENMT: Denies: throat pain or dental pain Card: Denies: chest pain Resp: Denies: dyspnea GI: Denies: abdominal pain, nausea, vomiting or diarrhea : Denies: dysuria Musc: Reports: extremity pain Skin/Breast: Denies: rash Neuro: Denies: headache(s) Psych: Denies: depression Gómez/Lymph: Denies: easy bruising All/Imm: Denies: urticaria PFSH ED PFSH: Medical History Arthritis Essential (primary) hypertension Family history of melanoma Hiatal hernia History of nonmelanoma skin cancer Hx of fracture of finger Left hydrocele Mild acid reflux Scrotal swelling Thrombocytopenia Surgical History Hx of eye surgery Family History Father Healthy adult Mother , AT 84 Dementia Stroke Other Cancer Social History Smoking and tobacco status: never smoked Alcohol intake: never Marital status: Current occupational status: retired Physical Exam Const: COMMON NORMALS: no acute distress, patient oriented x3 and healthy appearing HENMT: COMMON NORMALS: normocephalic and atraumatic HEAD & SCALP: normocephalic and atraumatic Eye: COMMON NORMALS: conjunctivae normal CONJUNCTIVA: Yes conjunctivae normal Neck/C-Spine: COMMON NORMALS: full ROM and supple Chest: COMMONS NORMALS: normal inspection of the chest Resp: COMMON NORMALS: normal respiratory effort Cardio: COMMON NORMALS: regular rate, regular rhythm and No murmurs present (Cardio) RATE: regular rate RHYTHM: regular rhythm GI: INSPECTION: Yes normal to inspection Extremity: NARRATIVE EXTREMITY EXAM: Contusion to left midfoot with minimal tenderness no deformity no laceration Neuro: COMMON NORMALS: patient oriented x3, moves all extremities and no focal motor deficits Psych: COMMON NORMALS: mental status grossly normal, Normal thought process present and cooperative THOUGHT PROCESS: Normal thought process present Skin: COMMON NORMALS: no rashes or lesions noted and no wounds GENERAL SKIN EXAM: no rashes or lesions noted Course Vital Signs: Vital signs: Vital Signs Temperature 97.7 F 11/09/22 20:36 Pulse Rate 98 11/09/22 21:10 Respiratory Rate 16 11/09/22 21:10 Blood Pressure 162/98 11/09/22 21:10 Pulse Oximetry 94 11/09/22 21:10 Oxygen Delivery Me thod 11/09/22 20:36 MDM - Extremity (Nontraumatic) Medical Decision Making Patient presents here with a foot contusion to his left foot x-ray shows no fracture he is able ambulate he is stable for discharge he is to ice along with compression Discharge Plan Discharge Patient Disposition: Home Clinical Impression: Contusion of foot Condition: Stable Prescriptions: No Action mupirocin 2 % ointment topical clobetasol 0.05 % ointment 1 applic topical BID 14 Days Qty: 45 0RF Rx Instructions: to affected areas on the trunk and extremities amoxicillin 875 mg tablet 875 mg PO triamcinolone acetonide 0.1 % ointment 1 applic topical BID Qty: 80 0RF Rx Instructions: Apply to affected area no more than 2 weeks per month. Not for face. 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
[2022-11-09 21:24] VITALS: BP 156/98; PULSE 95; RESP 16; O2SAT 94
== END 2022-11-09 21:25 | disposition home or self-care (01) ==
PROVIDERS: Emergency Provider Emergency Medicine; PCP Physician Assistant
DX: S90.32XA Contusion of left foot, initial encounter (principal); I10 Essential (primary) hypertension; W19.XXXA Unspecified fall, initial encounter
CPT/HCPCS: 73630; 99283

== ENCOUNTER → 2022-12-15 09:31 | Outpatient (BNVA) | payer MEDICARE, BC, SELFPAY | PROVIDERS: PCP Physician Assistant; Visit Provider Nurse Practitioner Family | DX: L57.0 Actinic keratosis (principal); L57.8 Other skin changes due to chronic exposure to nonionizing radiation; Z85.828 Personal history of other malignant neoplasm of skin; L81.4 Other melanin hyperpigmentation; D22.5 Melanocytic nevi of trunk; Z71.89 Other specified counseling; L85.3 Xerosis cutis; L91.8 Other hypertrophic disorders of the skin | CPT/HCPCS: 17000; 17003; 99213 ==

== ENCOUNTER 2023-04-20 19:16 | Emergency (ER) | payer MEDICARE, BC, SELFPAY ==
[2023-04-20 19:20] VITALS: BP 141/89; PULSE 84; RESP 18; TEMP 36.6; O2SAT 96; BMI 27.3
--- NOTE | 2023-04-20 19:48 | W.ED.WOUNDLC ---
HPI - Wound/Laceration General: Chief Complaint: Wound/Laceration Stated Complaint: cut on left arm Time Seen by Provider: 04/20/23 21:15 History of Present Illness: Patient is in today for a laceration to his left AC space. He reports that he was milking a cow and got slammed into a barbed wire fence. He states that he is not up-to-date on his tetanus. Associated symptoms: Denies chills or fever(s) Review of Systems Const: Denies: fever(s) or chills Skin/Breast: Reports: other (Laceration left AC space) REPLACED BY [facility] ED PFSH: Medical History Arthritis Essential (primary) hypertension Family history of melanoma Hiatal hernia History of nonmelanoma skin cancer Hx of fracture of finger Left hydrocele Mild acid reflux Scrotal swelling Thrombocytopenia Surgical History Hx of eye surgery Family History Father Healthy adult Mother , AT 84 Dementia Stroke Other Cancer Social History Smoking and tobacco/nicotine status: never used tobacco/nicotine Alcohol intake: never Substance/Drug Use: never Marital status: Current occupational status: retired Physical Exam Const: COMMON NORMALS: no acute distress, patient oriented x3 and alert Resp: COMMON NORMALS: normal respiratory effort and No use of accessory muscles Neuro: COMMON NORMALS: patient oriented x3 SENSORIUM/ORIENTATION: Yes alert Skin: NARRATIVE SKIN EXAM: Left AC space there is approximate 2 inch superficial horizontal laceration. Minimal bleeding. No deep structure involvement. There is moderate soft tissue swelling surrounding this laceration. Procedures Laceration Left AC: Site: upper extremity Side (If applicable): left Size (cm): 4 Depth: simple, single layer Local Anesthetic: lidocaine 1% Amount of anesthesia used (mL): 5 Pre-repair: wound explored, irrigated extensively and deep structures intact Skin layer closed with: other (Prolene) Size (cm): 4-0 Technique: running Course Vital Signs: Vital signs: Vital Signs Temperature 97.9 F 04/20/23 19:20 Pulse Rate 81 09/14/23 22:49 Respiratory Rate 18 04/20/23 19:20 Blood Pressure 165/97 04/20/23 21:27 Pulse Oximetry 95 04/20/23 22:49 Oxygen Delivery Me thod Room Air 04/20/23 21:27 MDM - Wound/Laceration Medical Decision Making Laceration Updated tetanus vaccination today X-ray elbow shows no acute osseous deformity. Soft tissue edema noted. Distal triceps tendon degenerative calcification noted. The wound was irrigated extensively. Local anesthetic provided with lidocaine 1%. Wound is approximated with 4-0 Prolene running suture. Patient tolerated well. Bleeding is controlled. Advised patient of aftercare. Return in 7 days for removal of sutures. I ordered the patient a prescription for Keflex antibiotic; however, the patient reports that he started taking doxycycline today for a sinus infection. Keflex antibiotic prescription was not given to the patient and was shredded. We will keep him on the doxycycline as previously ordered by another provider. Advised him to monitor the wound closely for signs of infection. Follow-up with primary care provider as needed. Return to the ER for new or worsening symptoms. Return in 7 days for suture removal. Lab Data Radiology Impressions Elbow X-Ray 04/20/23 21:25 IMPRESSION: 1. Negative for fracture or dislocation. 2. Distal triceps tendon degenerative calcification 3. Soft tissue edema about the elbow suspected. All radiology interpretation(s) finalized by discharge Discharge Plan Discharge Patient Disposition: Home Clinical Impression: Laceration Condition: Stable Prescriptions: No Action mupirocin 2 % ointment topical clobetasol 0.05 % ointment 1 applic topical BID 14 Days Qty: 45 0RF Rx Instructions: to affected areas on the trunk and extremities amoxicillin 875 mg tablet 875 mg PO albuterol sulfate [Ventolin HFA] 90 mcg/actuation HFA aerosol inhaler 2 puff inhalation Q6H PRN (Reason: shortness of breath or wheezing) Qty: 8.5 0RF triamcinolone acetonide 0.1 % ointment 1 applic topical BID Qty: 80 0RF Rx Instructions: Apply to affected area no more than 2 weeks per month. Not for face. amlodipine 5 mg tablet 5 mg PO DAILY fluticasone propionate 50 mcg/actuation spray,suspension 2 spray INTRANASAL DAILY PRN (Reason: Nasal Congestion) Discharge Orders: Discharge ED (Routine); Ordered 04/20/23 Ordered By: Sherine Greene Referrals: Libia Johnson PA [Primary Care Provider] - Discharge Diet: Usual diet Discharge Activity: Resume usual activity Patient Instructions: Care For Your Stitches (ED) Activity Restrictions/Additional Instructions: Go ahead and continue the doxycycline antibiotic you are currently on for prophylactic treatment to prevent infection. Keep the wound clean and dry. Return in 7 days for removal of sutures. Follow-up with PCP as needed. 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
--- NOTE | 2023-04-20 21:25 | XRR_ITS ---
PROCEDURE INFORMATION: Exam: XR Left Elbow Exam date and time: 04/20/2023 9:30 PM Age: 68 years old Clinical indication: Pain; Elbow; Left; Additional info: Laceration TECHNIQUE: Imaging protocol: Radiologic exam of the left elbow. Views: 1 or 2 views. COMPARISON: No relevant prior studies available. FINDINGS: Bones/joints: Distal triceps tendon degenerative calcification. Soft tissues: Soft tissue edema about the elbow suspected. XR/XR elbow LT 2V [id number] IMPRESSION: 1. Negative for fracture or dislocation. 2. Distal triceps tendon degenerative calcification 3. Soft tissue edema about the elbow suspected.
[2023-04-20 21:27] VITALS: BP 165/97; PULSE 79; O2SAT 97
[2023-04-20] MEDS: lidocaine 1% INJ 10 mL (per mL) 5 ML INJECTION (21:45)
[2023-04-20] MEDS: tetanus-dipt-pertussis 0.5 mL SDV IM (21:45)
[2023-04-20 22:49] VITALS: PULSE 81; O2SAT 95
== END 2023-04-20 22:51 | disposition home or self-care (01) ==
PROVIDERS: Emergency Provider Nurse Practitioner Family; PCP Physician Assistant
DX: S51.012A Laceration without foreign body of left elbow, initial encounter (principal); I10 Essential (primary) hypertension; W55.22XA Struck by cow, initial encounter; Z23 Encounter for immunization
CPT/HCPCS: 12002; 73070; 90471; 90715; 99283

== ENCOUNTER → 2023-06-20 08:43 | Outpatient (BNVA) | payer MEDICARE, BC, SELFPAY | PROVIDERS: PCP Physician Assistant; Visit Provider Nurse Practitioner Family | DX: Z80.8 Family history of malignant neoplasm of other organs or systems (principal); Z85.828 Personal history of other malignant neoplasm of skin; L57.0 Actinic keratosis; L81.4 Other melanin hyperpigmentation; L57.8 Other skin changes due to chronic exposure to nonionizing radiation; D22.5 Melanocytic nevi of trunk; L85.3 Xerosis cutis; L91.8 Other hypertrophic disorders of the skin | CPT/HCPCS: 17000; 99213 ==

== ENCOUNTER → 2023-11-16 10:39 | Outpatient (BNVA) | payer MEDICARE, BC, SELFPAY | PROVIDERS: PCP Physician Assistant; Visit Provider Podiatrist Foot & Ankle Surgery | DX: G57.61 Lesion of plantar nerve, right lower limb; E11.9 Type 2 diabetes mellitus without complications | CPT/HCPCS: 99203 ==

== ENCOUNTER → 2023-12-15 08:18 | Outpatient (BNVA) | payer MEDICARE, BC, SELFPAY | PROVIDERS: PCP Physician Assistant; Visit Provider Nurse Practitioner Family | DX: D48.5 Neoplasm of uncertain behavior of skin (principal); L57.0 Actinic keratosis; S30.861A Insect bite (nonvenomous) of abdominal wall, initial encounter; S50.911A Unspecified superficial injury of right forearm, initial encounter; S40.912A Unspecified superficial injury of left shoulder, initial encounter; L91.8 Other hypertrophic disorders of the skin; D22.5 Melanocytic nevi of trunk; L57.8 Other skin changes due to chronic exposure to nonionizing radiation; Z80.8 Family history of malignant neoplasm of other organs or systems; Z85.828 Personal history of other malignant neoplasm of skin; X58.XXXA Exposure to other specified factors, initial encounter | CPT/HCPCS: 11102; 17000; 99213 ==

== ENCOUNTER 2023-12-27 09:57 | Outpatient (CLI) | payer MEDICARE, BC, SELFPAY | END 2023-12-27 09:58 | disposition home or self-care (01) | LOC: SPT 09:58 | PROVIDERS: PCP Physician Assistant; Visit Provider Podiatrist Foot & Ankle Surgery | DX: Z46.89 Encounter for fitting and adjustment of other specified devices (principal); G57.61 Lesion of plantar nerve, right lower limb | CPT/HCPCS: 97760; L3030 ==

== ENCOUNTER → 2024-07-18 13:34 | Outpatient (BNVA) | payer MEDICARE, BC, SELFPAY | PROVIDERS: PCP Physician Assistant; Visit Provider Nurse Practitioner Family | DX: L91.8 Other hypertrophic disorders of the skin (principal); D22.5 Melanocytic nevi of trunk; Z08 Encounter for follow-up examination after completed treatment for malignant neoplasm; Z85.828 Personal history of other malignant neoplasm of skin; Z80.8 Family history of malignant neoplasm of other organs or systems; L57.0 Actinic keratosis | CPT/HCPCS: 17000; 99213 ==

== ENCOUNTER 2024-07-22 12:09 | Outpatient (CLI) | payer MEDICARE, BC, SELFPAY | END 2024-07-22 12:10 | disposition home or self-care (01) | LOC: LAB 12:11 | PROVIDERS: PCP Physician Assistant; Visit Provider Urology | DX: Z12.5 Encounter for screening for malignant neoplasm of prostate (principal) | CPT/HCPCS: 36415; G0103 ==

== ENCOUNTER 2024-08-01 19:38 | Emergency (ER) | payer MEDICARE, BC, SELFPAY ==
[2024-08-01 20:00] VITALS: BP 158/105; PULSE 154; RESP 18; TEMP 36.8; O2SAT 95
[2024-08-01 20:01] VITALS: BP 158/105; PULSE 154; RESP 18; O2SAT 95
--- NOTE | 2024-08-01 20:02 | W.ED.ARRPALP ---
HPI - Arrhythmia/Palpitations General: Chief Complaint: Arrhythmia/Palpitations Stated Complaint: high heart rate Time Seen by Provider: 08/01/24 19:52 Source: patient Mode of arrival: ambulatory Limitations: no limitations History of Present Illness: 69-year-old male has a history of SVT in the past states he usually converts at home had to have sustained SVT and have it converted to the hospital states he has been having palpitations for the last hour and a half. He denies any fever he states he does have some mild dyspnea due to his heart racing. Associated symptoms: Deny nausea or vomiting Related Data Home Medications Medication Instructions Recorded Confirmed amlodipine 5 mg tablet 5 mg PO DAILY 02/06/22 11/16/23 fluticasone propionate 50 2 spray intranasal DAILY PRN Nasal 02/06/22 11/16/23 mcg/actuation nasal Congestion spray,suspension mupirocin 2 % topical ointment g topical 02/22/22 11/16/23 amoxicillin 875 mg tablet 875 mg PO 06/22/22 11/16/23 Previous Rx's Medication Instructions Recorded albuterol sulfate 90 mcg/actuation 2 puff inhalation Q6H PRN 10/23/21 aerosol inhaler (Ventolin HFA) shortness of breath or wheezing #8.5 grams clobetasol 0.05 % topical ointment 1 applic topical BID 2 weeks #45 02/22/22 grams triamcinolone acetonide 0.1 % 1 applic topical BID #80 grams 11/10/22 topical ointment custom inserts #1 ea 11/16/23 Allergies Allergy/AdvReac Type Severity Reaction Status Date / Time Sulfa (Sulfonamide Allergy Mild ALGY-Rash Verified 11/16/23 11:00 Antibiotics) meloxicam Allergy ALGY-Swell Verified 11/16/23 11:00 Lip/Tongue/Throat Review of Systems Const: Denies: fever(s), chills, body aches or change in appetite ENMT: Denies: throat pain or dental pain Card: Denies: chest pain GI: Denies: abdominal pain, nausea, vomiting or diarrhea : Denies: dysuria or urinary dribbling Musc: Denies: neck pain or back pain Skin/Breast: Denies: rash Neuro: Denies: headache(s) PFSH ED PFSH: Medical History History of nonmelanoma skin cancer Thrombocytopenia Scrotal swelling Hx of fracture of finger Left hydrocele Family history of melanoma Mild acid reflux Hiatal hernia Arthritis Essential (primary) hypertension Surgical History Hx of eye surgery Family History Father Healthy adult Mother , AT 84 Dementia Stroke Other Cancer Social History Smoking and tobacco/nicotine status: never used tobacco/nicotine Alcohol intake: never Substance/Drug Use: never Marital status: Current occupational status: retired Physical Exam Const: COMMON NORMALS: no acute distress, patient oriented x3 and healthy appearing HENMT: COMMON NORMALS: normocephalic and atraumatic HEAD & SCALP: normocephalic and atraumatic Eye: COMMON NORMALS: conjunctivae normal CONJUNCTIVA: Yes conjunctivae normal Neck/C-Spine: COMMON NORMALS: full ROM and supple Chest: COMMONS NORMALS: normal inspection of the chest Resp: COMMON NORMALS: normal respiratory effort, No retractions, No use of accessory muscles and clear to auscultation bilaterally AUSCULTATION: clear to auscultation bilaterally Cardio: COMMON NORMALS: regular rhythm and No murmurs present (Cardio) RATE: tachycardic RHYTHM: regular rhythm Extremity: COMMON NORMALS: normal to inspection and full ROM Neuro: COMMON NORMALS: patient oriented x3, moves all extremities and no focal motor deficits Psych: COMMON NORMALS: mental status grossly normal, Normal thought process present and cooperative THOUGHT PROCESS: Normal thought process present Skin: COMMON NORMALS: no rashes or lesions noted and no wounds GENERAL SKIN EXAM: no rashes or lesions noted Course Vital Signs: Vital signs: Vital Signs Temperature 98.3 F 08/01/24 20:00 Pulse Rate 107 H 08/01/24 20:31 Respiratory Rate 13 08/01/24 20:31 Blood Pressure 125/7 08/01/24 20:31 Pulse Oximetry 95 08/01/24 20:31 Oxygen Delivery Me thod Room Air 08/01/24 20:31 MDM - Arrhythmia/Palpitations Medical Decision Making Patient presents here with SVT he is converted here his heart rates improved he feels much improved he had no chest pain no shortness of breath he is amatory here without any difficulty he stable for discharge follow-up with PCP return if worsening he understands agrees to plan. Medical Records I reviewed the patient's medical records. Lab Data 08/01/24 20:00 08/01/24 20:00 Laboratory Results WBC 6.12 10^3/uL (3.29-11.43) 08/01/24 20:00 RBC 5.44 10^6/uL (3.85-5.65) 08/01/24 20:00 Hgb 16.60 g/dL (11.27-16.99) 08/01/24 20:00 Hct 47.9 % (37-53) 08/01/24 20:00 MCV 88.1 fl (82-101) 08/01/24 20:00 MCH 30.5 pg (27-33) 08/01/24 20:00 MCHC 34.7 g/dL (30-55) 08/01/24 20:00 RDW 11.9 % (12.1-15.1) L 08/01/24 20:00 Plt Count 125 10^3/cmm (157-399) L 08/01/24 20:00 MPV 11.4 fL (7.4-10.4) H 08/01/24 20:00 Neut % (Auto) 52.3 % 08/01/24 20:00 Lymph % (Auto) 36.1 % 08/01/24 20:00 [place] % (Auto) 9.5 % 08/01/24 20:00 Eos % (Auto) 1.5 % 08/01/24 20:00 Baso % (Auto) 0.3 % 08/01/24 20:00 Neut # (Auto) 3.20 10^3/uL (1.8-7.7) 08/01/24 20:00 Lymph # (Auto) 2.2 10^3/uL (0.8-4.8) 08/01/24 20:00 [place] # (Auto) 0.6 10^3/uL (0.2-0.9) 08/01/24 20:00 Eos # (Auto) 0.1 10^3/uL (0.0-0.8) 08/01/24 20:00 Baso # (Auto) 0.0 10^3/uL (0.0-0.1) 08/01/24 20:00 Nucleated RBC % (auto) 0 % 08/01/24 20:00 Nucleated RBCs # 0.0 /100WBC 08/01/24 20:00 Sodium 142 mmol/L (136-145) 08/01/24 20:00 Potassium 4.1 mmol/L (3.5-5.1) 08/01/24 20:00 Chloride 105 mmol/L (98-107) 08/01/24 20:00 Carbon Dioxide 27 mmol/L (22-29) 08/01/24 20:00 Anion Gap 14.1 (5-19) 08/01/24 20:00 BUN 18 mg/dL (8-23) 08/01/24 20:00 Creatinine 0.9 mg/dL (0.7-1.2) 08/01/24 20:00 GFR Calculation 83.9 mL/min (90-130) L 08/01/24 20:00 Glucose 224 mg/dL (65-115) H 08/01/24 20:00 Calculated Osmolality 303 mOsm/kg (285-295) H 08/01/24 20:00 Calcium 9.4 mg/dL (8.5-10.5) 08/01/24 20:00 Total Bilirubin 0.2 mg/dL (0.15-1.2) 08/01/24 20:00 AST 20 U/L (0-40) 08/01/24 20:00 ALT 21 U/L (0-41) 08/01/24 20:00 Alkaline Phosphatase 82 U/L (40-130) 08/01/24 20:00 Total Protein 7.3 g/dL (6.6-8.7) 08/01/24 20:00 Albumin 4.4 g/dL (3.5-5.2) 08/01/24 20:00 Globulin 2.9 g/dL (1.3-4.6) 08/01/24 20:00 No radiology studies performed this visit EKG Data EKG 1: I personally reviewed and interpreted this EKG as follows: EKG interpretation date: 08/01/24 EKG interpretation time: 19:43 Interpretation: svt hr [address] elevation qrs 78 qtc 355 Discharge Plan Discharge Patient Disposition: Home Clinical Impression: Supraventricular tachycardia Condition: Stable Prescriptions: No Action mupirocin 2 % ointment topical clobetasol 0.05 % ointment 1 applic topical BID 14 Days Qty: 45 0RF Rx Instructions: to affected areas on the trunk and extremities amoxicillin 875 mg tablet 875 mg PO (DME) custom inserts See Rx Instructions .Route .MEDSUPPLY Qty: 1 0RF Rx Instructions: As directed albuterol sulfate [Ventolin HFA] 90 mcg/actuation HFA aerosol inhaler 2 puff inhalation Q6H PRN (Reason: shortness of breath or wheezing) Qty: 8.5 0RF triamcinolone acetonide 0.1 % ointment 1 applic topical BID Qty: 80 0RF Rx Instructions: Apply to affected area no more than 2 weeks per month. Not for face. 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
--- NOTE | 2024-08-01 20:08 | ECG_ITS ---
[employer] 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 [email or web address]
[2024-08-01] MEDS: adenosine 3 mg/mL SDV 2mL 6 MG IVP (20:12)
[2024-08-01 20:13] LABS: Basophils % 0.3 %; Eosinophils # 0.1 10^3/uL (0.0-0.8); Eosinophils % 1.5 %; Hematocrit 47.9 % (37-53); Lymphocytes # 2.2 10^3/uL (0.8-4.8); Lymphocytes % 36.1 %; Mean Corpuscular HGB Conc 34.7 g/dL (30-55); Mean Corpuscular Hemoglobin 30.5 pg (27-33); Mean Corpuscular Volume 88.1 fl (82-101); Mean Platelet Volume 11.4 fL (7.4-10.4); Monocytes # 0.6 10^3/uL (0.2-0.9); Monocytes % 9.5 %; Neutrophils % 52.3 %; Nucleated Red Blood Cells % 0 %; Platelet Count 125 10^3/cmm (157-399); Red Blood Count 5.44 10^6/uL (3.85-5.65); Red Cell Distribution Width 11.9 % (12.1-15.1); White Blood Count 6.12 10^3/uL (3.29-11.43)
[2024-08-01 20:16] VITALS: BP 128/92; PULSE 92; RESP 15; O2SAT 93
[2024-08-01 20:22] LABS: Alanine Aminotransferase 21 U/L (0-41); Albumin Level 4.4 g/dL (3.5-5.2); Alkaline Phosphatase 82 U/L (40-130); Blood Urea Nitrogen 18 mg/dL (8-23); Calcium 9.4 mg/dL (8.5-10.5); Carbon Dioxide 27 mmol/L (22-29); Chloride 105 mmol/L (98-107); Creatinine Clr Calc Pharmacy 86.2431; Globulin 2.9 g/dL (1.3-4.6); Glomerular Filtration Rate 83.9 mL/min (90-130); Glucose 224 mg/dL (65-115); Osmolality Calculated 303 mOsm/kg (285-295); Sodium 142 mmol/L (136-145); Total Bilirubin 0.2 mg/dL (0.15-1.2); Total Protein 7.3 g/dL (6.6-8.7)
[2024-08-01 20:31] VITALS: BP 125/7; PULSE 107; RESP 13; O2SAT 95
[2024-08-01 20:33] LABS: Anion Gap 14.1 (5-19); Aspartate Amino Transferase 20 U/L (0-40); Potassium 4.1 mmol/L (3.5-5.1)
[2024-08-01] MEDS: metoprolol tartrate 25 mg Tablet PO (20:39)
[2024-08-01 21:08] VITALS: BP 122/92; PULSE 109; O2SAT 93
== END 2024-08-01 21:11 | disposition home or self-care (01) ==
PROVIDERS: Emergency Provider Emergency Medicine; PCP Physician Assistant
DX: I47.10 Supraventricular tachycardia, unspecified (principal); I10 Essential (primary) hypertension; Z85.828 Personal history of other malignant neoplasm of skin
CPT/HCPCS: 36415; 80053; 85025; 93005; 96374; 99284; J0153

== ENCOUNTER 2024-08-05 08:06 | Emergency (ER) | payer BC, MEDICARE, SELFPAY ==
--- NOTE | 2024-08-05 08:11 | ECG_ITS ---
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 Measurements Intervals [place] Rate: 79 P: 63 NH: 192 QRS: -30 QRSD: 88 T: 81 QT: 382 QTc: 440 Interpretive Statements SINUS RHYTHM BORDERLINE LEFT AXIS DEVIATION [QRS AXIS < -20] Compared to ECG 08/01/2024 20:08:06 Sinus tachycardia no longer present Electronically Signed On 08-05-2024 16:34:43 PHYSICAL SCIENCE TEACHER by Sai Burgess M.D. [email or web address]
[2024-08-05 08:16] VITALS: BP 148/97; PULSE 89; RESP 17; TEMP 36.6; O2SAT 94
--- NOTE | 2024-08-05 08:20 | XR_ITS ---
WS: [id number] Portable AP upright chest, 08/05/2024 Clinical Data: palpitations Comparison: Portable chest, 10/23/2022 Findings: No nodules, masses or effusions are seen. The heart is normal. The pulmonary vascularity is not increased. No pneumonia or pneumothorax is seen. The aortic arch shows mild tortuosity monitor l mari are on the chest wall. XR/XR chest 1V portable [id number] Impression: Atherosclerosis.
--- NOTE | 2024-08-05 08:20 | W.ED.ARRPALP ---
HPI - Arrhythmia/Palpitations General: Chief Complaint: Arrhythmia/Palpitations Stated Complaint: heart racing Time Seen by Provider: 08/05/24 08:09 Source: patient Mode of arrival: ambulatory Limitations: no limitations History of Present Illness: 69-year-old male has a history of SVT states that this morning at 7 his heart rate was in the 150s states it lasted roughly 45 minutes he states on his way here it has resolved he is in normal sinus rhythm currently he states he feels fine now has no complaints denies any chest pain denies any shortness of breath. Associated symptoms: Deny nausea or vomiting Related Data Home Medications Medication Instructions Recorded Confirmed amlodipine 5 mg tablet 5 mg PO DAILY 02/06/22 11/16/23 fluticasone propionate 50 2 spray intranasal DAILY PRN Nasal 02/06/22 11/16/23 mcg/actuation nasal Congestion spray,suspension mupirocin 2 % topical ointment g topical 02/22/22 11/16/23 amoxicillin 875 mg tablet 875 mg PO 06/22/22 11/16/23 Previous Rx's Medication Instructions Recorded albuterol sulfate 90 mcg/actuation 2 puff inhalation Q6H PRN 10/23/21 aerosol inhaler (Ventolin HFA) shortness of breath or wheezing #8.5 grams clobetasol 0.05 % topical ointment 1 applic topical BID 2 weeks #45 02/22/22 grams triamcinolone acetonide 0.1 % 1 applic topical BID #80 grams 11/10/22 topical ointment custom inserts #1 ea 11/16/23 metoprolol succinate 25 mg 25 mg PO DAILY #30 tabs 08/05/24 tablet,extended release 24 hr Allergies Allergy/AdvReac Type Severity Reaction Status Date / Time Sulfa (Sulfonamide Allergy Mild ALGY-Rash Verified 11/16/23 11:00 Antibiotics) meloxicam Allergy ALGY-Swell Verified 11/16/23 11:00 Lip/Tongue/Throat Review of Systems Const: Denies: fever(s), chills, body aches or change in appetite ENMT: Denies: throat pain or dental pain Card: Reports: palpitations; Denies: chest pain Resp: Denies: dyspnea GI: Denies: abdominal pain, nausea, vomiting or diarrhea Musc: Denies: neck pain or back pain Skin/Breast: Denies: rash Neuro: Denies: headache(s) PFSH ED PFSH: Medical History History of nonmelanoma skin cancer Thrombocytopenia Scrotal swelling Hx of fracture of finger Left hydrocele Family history of melanoma Mild acid reflux Hiatal hernia Arthritis Essential (primary) hypertension Surgical History Hx of eye surgery Family History Father Healthy adult Mother , AT 84 Dementia Stroke Other Cancer Social History Smoking and tobacco/nicotine status: never used tobacco/nicotine Alcohol intake: never Substance/Drug Use: never Marital status: Current occupational status: retired Physical Exam Const: COMMON NORMALS: no acute distress, patient oriented x3 and healthy appearing HENMT: COMMON NORMALS: normocephalic and atraumatic HEAD & SCALP: normocephalic and atraumatic Eye: COMMON NORMALS: conjunctivae normal CONJUNCTIVA: Yes conjunctivae normal Neck/C-Spine: COMMON NORMALS: full ROM and supple Chest: COMMONS NORMALS: normal inspection of the chest Resp: COMMON NORMALS: normal respiratory effort, No retractions, No use of accessory muscles and clear to auscultation bilaterally AUSCULTATION: clear to auscultation bilaterally Cardio: COMMON NORMALS: regular rate, regular rhythm and No murmurs present (Cardio) RATE: regular rate RHYTHM: regular rhythm Extremity: COMMON NORMALS: normal to inspection and full ROM Neuro: COMMON NORMALS: patient oriented x3, moves all extremities and no focal motor deficits Psych: COMMON NORMALS: mental status grossly normal, Normal thought process present and cooperative THOUGHT PROCESS: Normal thought process present Skin: COMMON NORMALS: no rashes or lesions noted and no wounds GENERAL SKIN EXAM: no rashes or lesions noted Course Vital Signs: Vital signs: Vital Signs Temperature 97.9 F 08/05/24 08:16 Pulse Rate 85 08/05/24 08:26 Respiratory Rate 17 08/05/24 08:16 Blood Pressure 148/97 08/05/24 08:26 Pulse Oximetry 95 08/05/24 08:26 Oxygen Delivery Me thod Room Air 12/30/24 08:16 MDM - Arrhythmia/Palpitations Medical Decision Making Patient presents here with palpitations likely has SVT has been in normal sinus rhythm here we will start him on metoprolol he is follow-up with his PCP as scheduled next week return if worsening he understands agrees to plan. Medical Records I reviewed the patient's medical records. Lab Data I reviewed the patient's lab results. Radiology Impressions Chest X-Ray 08/05/24 08:20 Impression: Atherosclerosis. All radiology interpretation(s) finalized by discharge EKG Data EKG 1: I personally reviewed and interpreted this EKG as follows: EKG interpretation date: 08/05/24 EKG interpretation time: 08:11 Interpretation: nsr hr [address] elevation qrs 88 qtc 417 Other EKG comments: Chest X-Ray 08/05/24 08:20 Impression: Atherosclerosis. Discharge Plan Discharge Patient Disposition: Home Clinical Impression: Palpitations Condition: Stable Prescriptions: New metoprolol succinate 25 mg tablet extended release 24 hr 25 mg PO DAILY Qty: 30 0RF No Action mupirocin 2 % ointment topical clobetasol 0.05 % ointment 1 applic topical BID 14 Days Qty: 45 0RF Rx Instructions: to affected areas on the trunk and extremities amoxicillin 875 mg tablet 875 mg PO (DME) custom inserts See Rx Instructions .Route .MEDSUPPLY Qty: 1 0RF Rx Instructions: As directed albuterol sulfate [Ventolin HFA] 90 mcg/actuation HFA aerosol inhaler 2 puff inhalation Q6H PRN (Reason: shortness of breath or wheezing) Qty: 8.5 0RF triamcinolone acetonide 0.1 % ointment 1 applic topical BID Qty: 80 0RF Rx Instructions: Apply to affected area no more than 2 weeks per month. Not for face. amlodipine 5 mg tablet 5 mg PO DAILY fluticasone propionate 50 mcg/actuation spray,suspension 2 spray INTRANASAL DAILY PRN (Reason: Nasal Congestion) Discharge Orders: Discharge ED (Routine); Ordered 08/05/24 Ordered By: Solange Solitario Referrals: Libia Johnson PA [Primary Care Provider] - 4-7 days Discharge Diet: Advance as tolerated Discharge Activity: Resume usual activity Patient Instructions: Supraventricular Tachycardia (ED) Coding Level of Care Code ED Computer Security Manager for Herson Sheffield
[2024-08-05] MEDS: metoprolol tartrate 25 mg Tablet PO (08:25)
[2024-08-05 08:26] VITALS: BP 148/97; PULSE 85; O2SAT 95
[2024-08-05 09:16] VITALS: BP 148/67; PULSE 92; O2SAT 94
== END 2024-08-05 09:18 | disposition home or self-care (01) ==
PROVIDERS: Emergency Provider Emergency Medicine; PCP Physician Assistant
DX: R00.2 Palpitations (principal); Z85.828 Personal history of other malignant neoplasm of skin; I10 Essential (primary) hypertension
CPT/HCPCS: 71045; 93005; 99284

== ENCOUNTER 2024-08-06 10:51 | Emergency (ER) | payer BC, MEDICARE, SELFPAY ==
[2024-08-06] VITALS (7 sets, daily range): BP systolic 116–154; BP diastolic 74–108; PULSE 85–154; RESP 15–26; TEMP 37.1; O2SAT 91–98; BMI 28.9
--- NOTE | 2024-08-06 11:22 | ECG_ITS ---
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 Measurements Intervals [place] Rate: 149 P: 0 HI: 0 QRS: -31 QRSD: 80 T: 64 QT: 268 QTc: 423 Interpretive Statements ATRIAL FLUTTER/TACHYCARDIA WITH RAPID VENTRICULAR RESPONSE WITH ABERRANT CONDUCTION OR VENTRICULAR PREMATURE COMPLEXES LEFT AXIS DEVIATION [QRS AXIS < -30] PATTERN CONSISTENT WITH PULMONARY DISEASE MODERATE ST DEPRESSION [0.05+ mV ST DEPRESSION] Compared to ECG 08/05/2024 08:11:30 Ventricular premature complex(es) now present Aberrant conduction of supraventricular beat(s) now present ST (T wave) deviation now present Sinus rhythm no longer present Electronically Signed On 08-06-2024 17:47:55 PAINT TESTER by Marlyn Mello M.D. [email or web address]
--- NOTE | 2024-08-06 11:48 | XRR_ITS ---
PROCEDURE INFORMATION: Exam: XR Chest Exam date and time: 08/06/2024 12:03 PM Age: 69 years old Clinical indication: Other: Palpitations TECHNIQUE: Imaging protocol: Radiologic exam of the chest. Views: 1 view. COMPARISON: CR XR chest 1V portable [id number] 08/05/2024 8:46 AM FINDINGS: Lungs: No significant active pathology. Pleural spaces: No pleural effusion or pneumothorax. Heart/Mediastinum: Unremarkable. Bones/joints: No significant pathology. XR/XR chest 1V portable [id number] IMPRESSION: No acute pathology or significant interval change.
--- NOTE | 2024-08-06 11:50 | ED_ITS ---
HPI - Arrhythmia/Palpitations 2 General: Chief Complaint: Arrhythmia/Palpitations Stated Complaint: heart rate dont feel right Time Seen by Provider: 08/06/24 11:32 History of Present Illness: 69-year-old male presents to the ER breana f complaint of persistent episodic palpitations and tachycardia patient reports he has been having issues of this of over 1 year. Patient reports that most recently has been in the ER twice over the last 1 week requiring additional medication for rate control. Patient's case was Dr. Yao discussed with Dr. Hwang yesterday in which patient was initiated on metoprolol 25 mg in the morning patient endorses he took his medications this morning at approximately 5:00 530 he reports he is having still continued palpitations since with heart rate elevations up to the 150s and 160s. Begin SVT. Patient denies having any pain or chest pain with his palpitations or shortness of breath he endorses no pre-existing history of lung issues reports he was an avid runner which was a to competitive running up until about 10 years ago. Patient does report a history of high blood pressure however reports he has been most recently controlled with amlodipine which he quite frequently checks at patient denies any recent infections or illnesses or any other associated symptoms. Associated symptoms: Deny anxiety, nausea or vomiting Related Data Home Medications Medication Instructions Recorded Confirmed amlodipine 5 mg tablet 5 mg PO DAILY 02/06/22 08/06/24 fluticasone propionate 50 2 spray intranasal DAILY PRN Nasal 02/06/22 08/06/24 mcg/actuation nasal Congestion spray,suspension acetaminophen 500 mg tablet 1,000 mg PO Q4H pain 08/06/24 08/06/24 albuterol sulfate 90 mcg/actuation 1 puff inhalation QID PRN 08/06/24 08/06/24 aerosol inhaler Shortness Of Breath Or Wheezing ascorbic acid (vitamin C) 1,000 mg 1,000 mg PO DAILY 08/06/24 08/06/24 tablet,extended release (Vitamin C ER) guaifenesin 100 mg/5 mL oral liquid 200 mg PO Q4H PRN Cough 08/06/24 08/06/24 Previous Rx's Medication Instructions Recorded custom inserts #1 ea 11/16/23 metoprolol succinate 25 mg 25 mg PO DAILY #30 tabs 08/05/24 tablet,extended release 24 hr Allergies Allergy/AdvReac Type Severity Reaction Status Date / Time Sulfa (Sulfonamide Allergy Mild ALGY-Rash Verified 08/06/24 11:37 Antibiotics) meloxicam Allergy ALGY-Swell Verified 08/06/24 11:37 Lip/Tongue/Throat Review of Systems 2 General: Reports: 10 or more systems reviewed and unremarkable except in HPI and below Const: Denies: fever(s), chills, fatigue or malaise Eyes: Denies: change in vision or blurry vision Card: Reports: palpitations; Denies: chest pain Resp: Denies: dyspnea or productive cough GI: Denies: abdominal pain, nausea or vomiting : Denies: flank pain Musc: Denies: extremity pain or extremity swelling Skin/Breast: Denies: rash or pruritus Neuro: Denies: headache(s) Psych: Denies: anxiety or depression Gómez/Lymph: Denies: easy bleeding All/Imm: Denies: urticaria, throat swelling or facial swelling PFSH ED 2 PFSH: Medical History History of nonmelanoma skin cancer Thrombocytopenia Scrotal swelling Hx of fracture of finger Left hydrocele Family history of melanoma Mild acid reflux Hiatal hernia Arthritis Essential (primary) hypertension Surgical History Hx of eye surgery Family History Father Healthy adult Mother , AT 84 Dementia Stroke Other Cancer Social History Smoking and tobacco/nicotine status: never used tobacco/nicotine Alcohol intake: never Substance/Drug Use: never Marital status: Current occupational status: retired Physical Exam 2 Const: COMMON NORMALS: no acute distress, patient oriented x3, healthy appearing and alert (Patient appears to be just anxious on exam however appears in no obvious ac) HENMT: COMMON NORMALS: normocephalic and atraumatic HEAD & SCALP: n ormocephalic and atraumatic Eye: COMMON NORMALS: Equal, round and reactive pupils present and EOMs intact bilaterally PUPIL: Yes Equal, round and reactive pupils present Neck/C-Spine: COMMON NORMALS: full ROM, supple and no JVD Lymph: LYMPHATIC: no lymphadenopathy noted Chest: COMMONS NORMALS: normal inspection of the chest and normal palpation of entire chest wall Resp: COMMON NORMALS: normal respiratory effort, No retractions and clear to auscultation bilaterally EFFORT & INSPECTION: Yes able to speak in complete sentences and Yes symmetric chest movement AUSCULTATION: clear to auscultation bilaterally Cardio: COMMON NORMALS: no JVD and regular rhythm; negative for regular rate (What appears to be a sinus tachycardia versus SVT apparent on the monitor h) RATE: abnormal rate (What appears to be a sinus tachycardia versus SVT apparent on the monitor h) RHYTHM: regular rhythm GI: COMMON NORMALS: Normal to inspection, nondistended, normoactive bowel sounds present, Soft to palpation and non-tender INSPECTION: Yes normal to inspection PALPATION: Yes Soft to palpation : COMMON NORMALS: Yes no CVA tenderness BLADDER/KIDNEY EXAM: Yes no CVA tenderness Back/Pelvis: COMMON NORMALS: no CVA tenderness Extremity: COMMON NORMALS: normal to inspection and full ROM Neuro: COMMON NORMALS: patient oriented x3, CN's II-XII intact bilaterally, moves all extremities and no focal motor deficits SENSORIUM/ORIENTATION: Yes alert (Patient appears to be just anxious on exam however appears in no obvious ac) Psych: COMMON NORMALS: mental status grossly normal, Normal thought process present, cooperative and normal affect THOUGHT PROCESS: Normal thought process present Skin: COMMON NORMALS: no rashes or lesions noted GENERAL SKIN EXAM: no rashes or lesions noted Course 2 Vital Signs: Vital signs: Vital Signs Temperature 98.7 F 08/06/24 11:34 Pulse Rate 108 H 08/06/24 14:00 Respiratory Rate 16 08/06/24 14:00 Blood Pressure 150/92 08/06/24 14:00 Pulse Oximetry 98 08/06/24 14:00 Oxygen Delivery Me thod Room Air 08/06/24 11:34 MDM - Arrhythmia/Palpitations Medical Decision Making Due to patient's symptoms and condition an IV was established basic lab work imaging will be obtained we will be contacting Dr. Varner for further recommendations of his metoprolol dosage eating or further recommendations for discharge versus admission. The patient remained in stable condition the patient's heart rate is continue to improve with no additional intervention at this time. Will continue to follow Patient's first set of cardiac troponins come back unremarkable as well as BNP currently waiting on to our rule out patient's atrial flutter/tach tachycardia also improved now to a sinus rhythm 92 I discussed patient's case with Dr. 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 daily. Patient was provided his first dose while in the emergency room department will continue to follow and anticipate discharge home pending 2-hour troponin. Which patient deferred to follow-up with cardiology outpatient for further eval. Patient family updated in regards to his that are agreeable to discharge pending additional heart labs. Strict return precautions were provided. Lab Data 08/06/24 11:43 08/06/24 11:43 Radiology Impressions Chest X-Ray 08/06/24 11:48 IMPRESSION: No acute pathology or significant interval change. Laboratory Results WBC 10.18 10^3/uL (3.29-11.43) 08/06/24 11:43 RBC 5.55 10^6/uL (3.85-5.65) 08/06/24 11:43 Hgb 17.00 g/dL (11.27-16.99) H 08/06/24 11:43 Hct 49.2 % (37-53) 08/06/24 11:43 MCV 88.6 fl (82-101) 08/06/24 11:43 MCH 30.6 pg (27-33) 08/06/24 11:43 MCHC 34.6 g/dL (30-55) 08/06/24 11:43 RDW 11.9 % (12.1-15.1) L 08/06/24 11:43 Plt Count 142 10^3/cmm (157-399) L 08/06/24 11:43 MPV 11.4 fL (7.4-10.4) H 08/06/24 11:43 Neut % (Auto) 68.1 % 08/06/24 11:43 Lymph % (Auto) 24.1 % 08/06/24 11:43 [place] % (Auto) 6.8 % 08/06/24 11:43 Eos % (Auto) 0.6 % 08/06/24 11:43 Baso % (Auto) 0.2 % 08/06/24 11:43 Neut # (Auto) 6.94 10^3/uL (1.8-7.7) 08/06/24 11:43 Lymph # (Auto) 2.5 10^3/uL (0.8-4.8) 08/06/24 11:43 [place] # (Auto) 0.7 10^3/uL (0.2-0.9) 08/06/24 11:43 Eos # (Auto) 0.1 10^3/uL (0.0-0.8) 08/06/24 11:43 Baso # (Auto) 0.0 10^3/uL (0.0-0.1) 08/06/24 11:43 Nucleated RBC % (auto) 0 % 08/06/24 11:43 Nucleated RBCs # 0.0 /100WBC 08/06/24 11:43 Sodium 142 mmol/L (136-145) 08/06/24 11:43 Potassium 4.6 mmol/L (3.5-5.1) 08/06/24 11:43 Chloride 105 mmol/L (98-107) 08/06/24 11:43 Carbon Dioxide 23 mmol/L (22-29) 08/06/24 11:43 Anion Gap 18.6 (5-19) 08/06/24 11:43 BUN 16 mg/dL (8-23) 08/06/24 11:43 Creatinine 0.9 mg/dL (0.7-1.2) 08/06/24 11:43 GFR Calculation 83.9 mL/min (90-130) L 08/06/24 11:43 Glucose 153 mg/dL (65-115) H 08/06/24 11:43 Calculated Osmolality 298 mOsm/kg (285-295) H 08/06/24 11:43 Calcium 9.4 mg/dL (8.5-10.5) 08/06/24 11:43 Total Bilirubin 0.2 mg/dL (0.15-1.2) 08/06/24 11:43 AST 23 U/L (0-40) 08/06/24 11:43 ALT 26 U/L (0-41) 08/06/24 11:43 Alkaline Phosphatase 90 U/L (40-130) 08/06/24 11:43 Troponin T Baseline 9 ng/L (0-15) 08/06/24 11:43 Troponin T 120 Minute 8.77 ng/L (0-15) 08/06/24 13:57 Delta Troponin T -0.23 ABS# (0-10) L 08/06/24 13:57 NT-Pro-B Natriuret Pep 101 pg/mL (0-125) 08/06/24 11:43 Total Protein 7.3 g/dL (6.6-8.7) 08/06/24 11:43 Albumin 4.6 g/dL (3.5-5.2) 08/06/24 11:43 Globulin 2.7 g/dL (1.3-4.6) 08/06/24 11:43 All radiology interpretation(s) finalized by discharge EKG Data Atrial tachycardia rate of 149 appearing to be SVT with ST depressions note located in 2 3 aVF with no reciprocal's: Other EKG comments: Chest X-Ray 08/06/24 11:48 IMPRESSION: No acute pathology or significant interval change. Discharge Plan Discharge Patient Disposition: Home Clinical Impression: Paroxysmal supraventricular tachycardia Condition: Stable Prescriptions: No Action (DME) custom inserts See Rx Instructions .Route .MEDSUPPLY Qty: 1 0RF Rx Instructions: As directed amlodipine 5 mg tablet 5 mg PO DAILY fluticasone propionate 50 mcg/actuation spray,suspension 2 spray INTRANASAL DAILY PRN (Reason: Nasal Congestion) Vitamin C 1,000 mg Tablet Extended Release 1,000 mg PO DAILY acetaminophen [Tylenol Ex Str Rapid Release] 500 mg Tablet 1,000 mg PO Q4H guaifenesin [Robitussin] 100 mg/5 mL Liquid 200 mg PO Q4H PRN (Reason: Cough) albuterol sulfate 90 mcg/actuation Hfa Aerosol Inhaler 1 puff INHALATION QID PRN (Reason: Shortness Of Breath Or Wheezing) metoprolol succinate 25 mg tablet extended release 24 hr 25 mg PO DAILY Qty: 30 0RF Discharge Orders: Discharge ED (Routine); Ordered 08/06/24 Ordered By: Jass Rossi Referrals: Libia Johnson PA [Primary Care Provider] - 4-7 days Discharge Diet: Cardiac Discharge Activity: Increase activity as tolerated Patient Instructions: Supraventricular Tachycardia (ED), Atrial Tachycardia (ED), Valsalva Maneuver (ED) Activity Restrictions/Additional Instructions: At this time please start taking 2 of your metoprolol 25 mg tablets daily it is further recommended that you further follow-up with cardiology for formal eval no additional Holter monitor or event monitor at this time as you have had 1 last 6 months please watch your heart rate and blood pressure carefully if your heart rate goes below 40 please discontinue your metoprolol and return for further eval and management. Coding Level of Care Code ED Cable Weaver for Herson Sheffield
[2024-08-06 12:03] LABS: Basophils % 0.2 %; Eosinophils # 0.1 10^3/uL (0.0-0.8); Eosinophils % 0.6 %; Hematocrit 49.2 % (37-53); Lymphocytes # 2.5 10^3/uL (0.8-4.8); Lymphocytes % 24.1 %; Mean Corpuscular HGB Conc 34.6 g/dL (30-55); Mean Corpuscular Hemoglobin 30.6 pg (27-33); Mean Corpuscular Volume 88.6 fl (82-101); Mean Platelet Volume 11.4 fL (7.4-10.4); Monocytes # 0.7 10^3/uL (0.2-0.9); Monocytes % 6.8 %; Neutrophils # 6.94 10^3/uL (1.8-7.7); Neutrophils % 68.1 %; Nucleated Red Blood Cells % 0 %; Platelet Count 142 10^3/cmm (157-399); Red Blood Count 5.55 10^6/uL (3.85-5.65); Red Cell Distribution Width 11.9 % (12.1-15.1); White Blood Count 10.18 10^3/uL (3.29-11.43)
[2024-08-06 12:12] LABS: Troponin(5th) Baseline 9 ng/L (0-15)
[2024-08-06 12:26] LABS: Alanine Aminotransferase 26 U/L (0-41); Albumin Level 4.6 g/dL (3.5-5.2); Alkaline Phosphatase 90 U/L (40-130); Blood Urea Nitrogen 16 mg/dL (8-23); Calcium 9.4 mg/dL (8.5-10.5); Carbon Dioxide 23 mmol/L (22-29); Chloride 105 mmol/L (98-107); Creatinine Clr Calc Pharmacy 86.6462; Globulin 2.7 g/dL (1.3-4.6); Glomerular Filtration Rate 83.9 mL/min (90-130); Glucose 153 mg/dL (65-115); NT Pro B Type Natriuretic Pept 101 pg/mL (0-125); Osmolality Calculated 298 mOsm/kg (285-295); Sodium 142 mmol/L (136-145); Total Bilirubin 0.2 mg/dL (0.15-1.2); Total Protein 7.3 g/dL (6.6-8.7)
[2024-08-06 12:34] LABS: Anion Gap 18.6 (5-19); Aspartate Amino Transferase 23 U/L (0-40); Potassium 4.6 mmol/L (3.5-5.1)
[2024-08-06] MEDS: metoprolol succinate ER (24 HR) 50 mg Tablet PO (14:04)
[2024-08-06 14:20] LABS: Troponin 5 2HR 8.77 ng/L (0-15)
[2024-08-06 14:21] LABS: Troponin 5 2HR Delta -0.23 ABS# (0-10)
== END 2024-08-06 14:47 | disposition home or self-care (01) ==
PROVIDERS: Emergency Provider Emergency Medicine; PCP Physician Assistant
DX: I47.19 Other supraventricular tachycardia (principal); I10 Essential (primary) hypertension
CPT/HCPCS: 36415; 71045; 80053; 83880; 84484; 85025; 93005; 99285

== ENCOUNTER 2024-08-08 07:44 | Outpatient (RCR) | payer BC, MEDICARE, SELFPAY | END 2024-09-06 23:59 | disposition home or self-care (01) | LOC: SOT 07:44 | PROVIDERS: PCP Physician Assistant; Visit Provider Physician Assistant | DX: M65.311 Trigger thumb, right thumb (principal) | CPT/HCPCS: 97022; 97110; 97166; 97530 ==

== ENCOUNTER → 2024-08-20 15:20 | Outpatient (BNVA) | payer MEDICARE, BC, SELFPAY | PROVIDERS: PCP Physician Assistant; Visit Provider Internal Medicine Cardiovascular Disease | DX: I47.10 Supraventricular tachycardia, unspecified (principal); I10 Essential (primary) hypertension; I48.92 Unspecified atrial flutter; J45.909 Unspecified asthma, uncomplicated | CPT/HCPCS: 99204 ==

== ENCOUNTER 2024-09-11 07:39 | Outpatient (CLI) | payer MEDICARE, BC, SELFPAY ==
--- NOTE | 2024-09-11 07:45 | USCV_ITS ---
José Miguel Parrish Age: 69 Gender: M : 1955 Exam Date: 09/11/2024 08:14 Ordering Phys: Nuris Fuentes MD ([email or web address]) Technologist: [place]am [place] [facility] [place]: cp BP: 130 / 78 HR: 76 Rhythm: Sinus Technical Quality: Adequate MEASUREMENTS (Male / Female) Normal Values 2D ECHO LV Diastolic Diameter PLAX 5.3 cm 4.2 - 5.9 / 3.9 - 5.3 cm IVS Diastolic Thickness 1.1 cm 0.6 - 1.0 / 0.6 - 0.9 cm IVS Systolic Thickness 1.1 cm LVPW Diastolic Thickness 1.0 cm 0.6 - 1.0 / 0.6 - 0.9 cm LVPW Systolic Thickness 1.8 cm LVOT Diameter 2.0 cm LV Ejection Fraction 2D Teich 70.0 % LV Ejection Fraction MOD 4C 63.6 % LV Ejection Fraction MOD 2C 64.8 % LV Ejection Fraction 2C AL 67.1 % LA Diameter 3.0 cm RA Systolic Volume 4C AL 45.2 ml RA Systolic Volume 4C MOD 44.3 ml LA Sys Volume AL 51.4 cm cubed LA Sys Volume Index AL 23.4 cm cubed/m squared Aorta at Sinotubular Diameter 3.0 cm IVC Diameter 1.4 cm M-MODE LA Ao Ratio MM 1.2 AV Cusp Separation MM 2.6 cm DOPPLER AV Peak Velocity 119.0 cm/s LVOT Peak Velocity 116.0 cm/s AV Area Cont Eq vti 3.8 cm squared AV Area Cont Eq pk 3.1 cm squared MV Peak Velocity 82.0 cm/s MV Area PHT 2.8 cm squared Mitral E to A Ratio 0.6 TV Peak Velocity 233.5 cm/s TR Peak Velocity 275.0 cm/s TR Peak Gradient 30.3 mmHg TV Peak E Velocity 93.0 cm/s PV Peak Velocity 136.0 cm/s FINDINGS Left Ventricle Left ventricle is normal size. LV systolic function is normal with EF of 55-60%. No regional wall motion abnormalities. Grade 1 diastolic dysfunction. Right Ventricle Normal in size and function Right Atrium Normal in size Left Atrium Normal in size Mitral Valve Structurally normal mitral valve. Trace mitral regurgitation. Aortic Valve Structurally normal aortic valve. Moderate aortic regurgitation. No significant stenosis. Tricuspid Valve Mild tricuspid regurgitation. Pulmonary artery systolic pressure is normal. Pulmonic Valve Trace pulmonic regurgitation. Pericardium Normal Aorta Normal in size IVC Appears to be normal CONCLUSIONS LV systolic function is normal with EF of 55-60% Grade 1 diastolic dysfunction Trace mitral regurgitation Moderate aortic regurgitation Mild tricuspid regurgitation Trace pulmonic regurgitation No comparion studies are available. Sai Burgess MD (Electronically Signed) Final Date: 11 September 2024 10:27 S
== END 2024-09-11 07:40 | disposition home or self-care (01) ==
PROVIDERS: PCP Physician Assistant; Visit Provider Internal Medicine Cardiovascular Disease
DX: R06.02 Shortness of breath (principal); R93.1 Abnormal findings on diagnostic imaging of heart and coronary circulation; I35.1 Nonrheumatic aortic (valve) insufficiency; I07.1 Rheumatic tricuspid insufficiency
CPT/HCPCS: 93306

== ENCOUNTER 2024-09-25 16:28 | Outpatient (RCR) | payer MEDICARE, BC, SELFPAY | END 2024-10-04 23:59 | disposition home or self-care (01) | LOC: SOT 16:28 | PROVIDERS: PCP Physician Assistant; Visit Provider Physician Assistant | DX: M65.30 Trigger finger, unspecified finger (principal) | CPT/HCPCS: 97022; 97110 ==

== ENCOUNTER 2024-10-10 07:46 | Outpatient (CLI) | payer MEDICARE, BC, SELFPAY ==
--- NOTE | 2024-10-10 07:50 | MR_ITS ---
WS: [id number] MRI HEAD WITH CONTRAST WITH ATTENTION TO THE INTERNAL AUDITORY CANALS TECHNIQUE: Sagittal T1, T2 axial, T2 axial flair, axial susceptibility weighted imaging, axial diffusion weighted images, and coronal T2 images were obtained. Pre and post T1 axial and post T1 coronal images. ADC and FSPGR images. Post gadolinium images with attention to the internal auditory canals. Axial fiesta imaging. CLINICAL INFORMATION: BILATERAL HEARING LOSS,SENSORINEURAL COMPARISON: None. FINDINGS: Enhancing small nodule LEFT IAC measuring approximately 3 mm compatible with a small vestibular schwannoma. RIGHT IAC is normal in appearance. Normal trigeminal nerve root entry zones. No abnormal intracranial enhancement. Normal dural venous sinuses. No evidence of restricted diffusion to suggest acute ischemia. Ventricular system and basilar cisterns are patent. Normal posterior fossa. Normal vascular flow voids at the skull base. No extra-axial fluid collections. No evidence of mass or mass effect. Paranasal sinuses are well aerated. Mastoid air cells are well aerated. Normal posterior nasopharynx. Mild small vessel changes. Moderate parenchymal volume loss. No hemosiderin. MR/MR iac's wo/w con* [id number] IMPRESSION: 1. 3 mm enhancing nodule in the LEFT IAC most compatible with small vestibular schwannoma 2. Paranasal sinuses are well aerated. Mastoid air cells are well aerated. 3. Minimal small vessel changes. Mild to moderate parenchymal volume loss. 4. No other acute findings.
== END 2024-10-10 07:47 | disposition home or self-care (01) ==
PROVIDERS: PCP Physician Assistant; Visit Provider Specialist
DX: H90.3 Sensorineural hearing loss, bilateral (principal); R93.0 Abnormal findings on diagnostic imaging of skull and head, not elsewhere classified
CPT/HCPCS: 70553

== ENCOUNTER → 2024-11-19 09:02 | Outpatient (BNVA) | payer MEDICARE, BC, SELFPAY | PROVIDERS: PCP Physician Assistant; Visit Provider Internal Medicine Cardiovascular Disease | DX: I11.0 Hypertensive heart disease with heart failure (principal); I48.91 Unspecified atrial fibrillation; I48.92 Unspecified atrial flutter; I50.9 Heart failure, unspecified; I47.10 Supraventricular tachycardia, unspecified | CPT/HCPCS: 99214 ==

== ENCOUNTER 2025-01-02 09:46 | Outpatient (CLI) | payer MEDICARE, BC, SELFPAY ==
--- NOTE | 2025-01-02 09:52 | XR_ITS ---
WS: [id number] Chest 2 views, 01/02/2025 Clinical Data: COUGH/DYSPAGIA Comparison: Portable chest, 08/06/2024 Findings: No nodules, masses or effusions are seen. The heart is normal. The pulmonary vascularity is not increased. No pneumonia or pneumothorax is seen. The aortic arch shows mild tortuosity. XR/XR chest 2V* [id number] Impression: Atherosclerosis.
== END 2025-01-02 09:47 | disposition home or self-care (01) ==
LOC: RAD 09:50
PROVIDERS: PCP Physician Assistant; Visit Provider Specialist
DX: R13.10 Dysphagia, unspecified (principal); R05.9 Cough, unspecified; R93.89 Abnormal findings on diagnostic imaging of other specified body structures; I70.90 Unspecified atherosclerosis
CPT/HCPCS: 71046

== ENCOUNTER → 2025-01-16 08:21 | Outpatient (BNVA) | payer MEDICARE, BC, SELFPAY | PROVIDERS: PCP Physician Assistant; Visit Provider Nurse Practitioner Family | DX: L55.0 Sunburn of first degree (principal); L91.8 Other hypertrophic disorders of the skin; D22.5 Melanocytic nevi of trunk; Z08 Encounter for follow-up examination after completed treatment for malignant neoplasm; Z85.828 Personal history of other malignant neoplasm of skin; Z80.8 Family history of malignant neoplasm of other organs or systems; L57.0 Actinic keratosis | CPT/HCPCS: 17000; 99214 ==

== ENCOUNTER 2025-01-22 09:04 | Outpatient (CLI) | payer MEDICARE, BC, SELFPAY ==
--- NOTE | 2025-01-22 09:11 | FL_ITS ---
WS: [id number] Barium swallow and esophagram, 01/22/2025 Clinical Data: Dysphagia Comparison: None. Fluoroscopy time: 1min [id number] # of spot films: 41 Findings: The patient swallowed the thick and thin barium, and it flowed through the hypopharynx without hesitation. No stricture, mass, polyp or erosion was seen. No aspiration or penetration occurred. There is posterior impingement on the hypopharynx by spurring of the cervical vertebral bodies. The barium entered the esophagus and there was normal motility throughout. No stricture, polyp, mass, erosion or ulcer was noted. No reflux was present. There was a small sliding hiatal hernia. The barium passed normally into the stomach. FL/FL barium swallow [id number] Impression: 1. 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 2. Small sliding hiatal hernia without reflux.
== END 2025-01-22 09:05 | disposition home or self-care (01) ==
PROVIDERS: PCP Physician Assistant; Visit Provider Specialist
DX: R13.10 Dysphagia, unspecified (principal); R05.9 Cough, unspecified; M47.892 Other spondylosis, cervical region; K44.9 Diaphragmatic hernia without obstruction or gangrene
CPT/HCPCS: 74220

== ENCOUNTER 2025-01-23 09:06 | Outpatient (CLI) | payer MEDICARE, BC, SELFPAY ==
--- NOTE | 2025-01-23 09:13 | CT_ITS ---
WS: [id number] CT NECK TECHNIQUE: Contrast-enhanced CT of the neck with coronal and sagittal reformatted images. CLINICAL INFORMATION: DYSPHAGIA COMPARISON: 2021 DLP: 267.[address] scans at [facility] use at least one of these dose optimization techniques: automated exposure control; mA and/or kV adjustment per patient size (includes targeted exams where dose is matched to clinical indication); or iterative reconstruction. FINDINGS: Paranasal sinuses are well aerated. Mastoid air cells are well aerated. Normal posterior nasopharynx. Normal parapharyngeal fat. Parotid glands are normal. Normal submandibular glands. Normal thyroid gland. No cervical lymphadenopathy. No evidence supraglottic or glottic mass. Normal subglottic airway. Mild hypertrophic changes anterior cervical spine. Mild spondylitic changes cervical spine. IMPRESSION No acute neck findings
[2025-01-23 09:55] LABS: Blood Urea Nitrogen 12 mg/dL (8-23); Glomerular Filtration Rate 83.9 mL/min (90-130)
[2025-01-23] MEDS: iohexol 350 mg/mL 500 mL Btl (per mL) IV (09:57)
== END 2025-01-23 09:07 | disposition home or self-care (01) ==
LOC: RAD 09:07
PROVIDERS: PCP Physician Assistant; Visit Provider Specialist
DX: R13.10 Dysphagia, unspecified (principal); R05.9 Cough, unspecified
CPT/HCPCS: 70491; 82565; 84520

== ENCOUNTER 2025-01-28 06:51 | Outpatient (CLI) | payer MEDICARE, BC, SELFPAY | END 2025-01-28 06:52 | disposition home or self-care (01) | PROVIDERS: PCP Physician Assistant; Visit Provider Specialist | DX: R13.10 Dysphagia, unspecified (principal); R05.9 Cough, unspecified | CPT/HCPCS: 94010 ==

== ENCOUNTER 2025-02-13 21:27 | Emergency (ER) | payer MEDICARE, BC, SELFPAY ==
--- OUTSIDE RECORDS SUMMARY | 2003-08-06 19:00 | XMS_ITS | Continuity of Care Document ---
Author Name [facility] Address [address] [place] [address] Organization [facility] Care Team Providers Care Affiliate Marketing Specialist Name Role Phone [facility] Unavailable Unavailable Problems Problem Status Onset Date Problem Type Date of Resolution Comme nts Source Diabetes mellitus (disorder) Active Condition Cellulitis (disorder) Diagnosis Eruption of skin (disorder) Diagnosis Type II diabetes mellitus without complication (disorder) Diagnosis Essential hypertension (disorder) Diagnosis Cellulitis, unspecified Active Diagnosis Allergies, Adverse Reactions, Alerts Substance Category Reaction Severity Reaction type Status Date Reported Comments Source meloxicam Assertion Drug allergy Active [facility]
[2025-02-13 21:27] VITALS: BP 150/86; PULSE 75; RESP 16; TEMP 36.4; O2SAT 91; BMI 29.5
--- OUTSIDE RECORDS SUMMARY | 2025-02-13 21:35 | XMS_ITS | Data Portability ---
Author Organization LINDA Juan Pastor [facility], [place], [facility] Address [address] [facility] [address] [place] [address] Care Team Providers Care Sound Technician Name Role Phone LIBIA MELISSA Primary Care Provider Unavailabl e Assessment No assessment recorded. Plan of Treatment Reminders Order Date Submit Date Provider Last Modified By Organization Details Last Modified Time Details Appointments None recorded. Lab rapid flu (A+B), PCR 2024 025 [facility] ([facility]), [address] [place], [address], 5 09:55:[address] referral - [facility] had event monitor 2023 024 [place] [address] [facility], [address] [place] [address], [address], 4 17:42:00 physical therapist referral - [facility]. dry needling if possible. [address] [facility], [address] [place] [address], [address], 4 14:03:35 Procedures None recorded. Surgeries None recorded. Imaging None recorded. Medication Orders clobetasol 0.05 % topical ointment 2024 025 [facility]acy #[id number], [address] [facility] [address], [address], 5 16:12:52 benzonatat e 200 mg capsule 2024 025 [id number], [address], [place], [address], 5 05:01:41 benzonatat e 200 mg capsule 2024 025 [id number], [address], [address], [place], [address], 5 05:01:41 metoprolol succinate ER 50 mg tablet,ext ended release 24 hr 2024 025 [id number], [address], [address], [place], [address], 5 11:23:28 prednisone 20 mg tablet 2024 025 [id number], [address], [address], [place], [address], 5 09:35:00 azithromyc in 250 mg tablet 2024 025 [id number], [address], [address], [place], [address], 5 09:34:53 Patient TargetsNo targets recorded. Patient InstructionsNo instructions recorded. 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 dry needling if possible. Referring Physician: Libia Melissa Family [facility], Encounter Date: 06/12/2024 Results Created Date Observation Date Name Description Value Unit Range Abnormal Flag Note LastModifiedBy Organization Detail LastModifiedTime 09/11/19 25 09/11/2024 rapid flu (A+B) , PCR Influenza A positi ve Not Available [facility] ([facility]) [address] [place], [address], 09/11/2024 09:35:17 09/11/19 25 09/11/2024 rapid flu (A+B) , PCR Influenza B negati ve Not Available [facility] ([facility]) [address] [place], [address], 09/11/2024 09:35:17 05/27/20 24 04/16/2024 event monit or No observ ation record ed. [email or web address] [facility] [address] [place] [address], [address], 05/28/2024 15:43:53 Result Notes None recorded. Problems Name Problem SNOMED Code Status Onset Date Resolution Date Notes Provider Name and Address Organization Details Recorded Time Benign essential hypertensi on 1028657 Active 2022 Rosalba craig [facility] 4 08:50:04 Hypertensi ve disorder 89427198 Active 2022 HTN (HYPERTEN LILLIAM); Recorded 3 9:09AM by Jane Kim LPN, Office Visit; Promoted; acuity set as *; Not Available [facility] 3 03:12:21 Hyperlipid emia 36319257 Active 2022 Rosalba cragi [facility] 4 08:50:09 Thrombocyt openic disorder 426651152 Active 2023 LIBIA MELISSA PA-C [address] [place], [address] , [facility] 4 10:00:48 Problem Notes None recorded. Procedures Surgical History Date Name Laterality Status Provider Name and Address Organization Details Recorded Time 4 screening for malignant neoplasm of colon completed JANE KIM [facility] 01/17/2024 16:42:30 Hydrocele Repair completed Marilia Pena [facility] 05/09/2024 08:32:44 Imaging Results None recorded. Procedure Notes None recorded. Medical Equipment None Reported. Allergies Allergen ID Allergen Name Allergen Category Reaction Reaction Severity Criticality Documentation Date Start Date Code Code System Note Provider Name and Address Organization Details Recorded Time 97972 lisinopri l medicatio n cough mild low 03/04/2023 91258 RxNorm Rosalba Espinoza [facility] 4 08:49:56 93348 Bactrim medicatio n rash mild low 03/04/2023 69479 9 RxNorm Rosalba Espinoza [facility] 4 08:49:47 52852 Levaquin medicatio n Not available Not available Not available 06/14/2023 47765 2 RxNorm JANE JULIO [facility] 3 15:41:26 19121 meloxicam medicatio n Not available Not available Not available 07/05/2023 45234 RxNorm Kayli Bello [facility] 3 08:25:41 Medications Name Sig Start Date Stop Date Status Note LastModified by Organization Details LastModified Time promethaz ine-DM 6.25 mg-15 mg/5 mL oral syrup TAKE 5-10MLS BY MOUTH EVERY 6 HOURS NEEDED 06/14 completed Not Available Not Available Not Available doxycycli ne hyclate 100 mg capsule TAKE 1 CAPSULE BY MOUTH TWICE A DAY FOR 10 DAYS 08/10 completed Not Available Not Available Not Available atorvasta tin 20 mg tablet TAKE 1 TABLET BY MOUTH EVERY DAY 02/09 completed Not Available Not Available Not Available clindamyc in HCl 300 mg capsule 06/14 completed Not Available Not Available Not Available azithromy rommel 250 mg tablet TAKE 2 TABLETS (500 MG) BY ORAL ROUTE ONCE DAILY FOR 1 DAY THEN 1 TABLET (250 MG) BY ORAL ROUTE ONCE DAILY FOR 4 DAYS 09/11 completed Not Available Not Available Not Available benzonata te 200 mg capsule Take 1 capsule 3 times a day by oral route as needed for 15 days, for cough. 01/22 completed Not Available Not Available Not Available metoprolo l succinate ER 50 mg tablet,ex tended release 24 hr TAKE 1 TABLET BY MOUTH EVERY DAY 2024 active Not Available Not Available Not Avai lable hydrocodo ne 5 mg-acetam inophen 325 mg tablet TAKE 1 TABLET BY MOUTH EVERY 4 HOURS NEEDED FOR PAIN FOR 5 DAYS 06/14 completed Not Available Not Available Not Available prednison e 20 mg tablet Take 1 tablet every day by oral route for 5 days. 09/11 completed Not Available Not Available Not Available fluoroura cil 5 % topical cream PLEASE SEE ATTACHED FOR DETAILED DIRECTIO NS active Not Available Not Available No t Available fexofenad ine 180 mg tablet TAKE 1 TABLET BY MOUTH EVERY DAY 04/03 completed Not Available Not Available Not Available amlodipin e 5 mg tablet TAKE 1 TABLET DAILY DIRECTED 2024 active Not Available Not Available Not Avai lable doxycycli ne monohydra te 100 mg tablet TAKE 1 TABLET BY MOUTH TWICE A DAY WITH FOOD 06/14 completed Not Available Not Available Not Available amoxicill in 875 mg tablet TAKE 1 TABLET BY MOUTH TWICE A DAY 06/14 completed Not Available Not Available Not Available tamsulosi n 0.4 mg capsule TAKE 1 CAPSULE BY MOUTH EVERY DAY 06/12 completed Not Available Not Available Not Available amlodipin e 10 mg tablet 01/18 completed Not Available Not Available Not Available benzonata te 100 mg capsule TAKE 1 CAPSULE BY MOUTH THREE TIMES A DAY FOR 10 DAYS 08/10 completed Not Available Not Available Not Available doxycycli ne monohydra te 100 mg capsule TAKE 1 CAPSULE BY MOUTH TWICE A DAY FOR 10 DAYS 06/14 completed Not Available Not Available Not Available cephalexi n 500 mg capsule TAKE 1 CAPSULE BY MOUTH 3 TIMES A DAY FOR 7 DAYS. TAKE WITH FOOD. 02/09 completed Not Available Not Available Not Available triamcino lone acetonide 0.1 % topical ointment APPLY TO AFFECTED AREA TWICE DAILY FOR NO MORE THAN 2 WEEKS PER MONTH. NOT FOR FACE. 06/14 completed Not Available Not Available Not Available hydrocort isone 2.5 % topical cream APPLY TWICE DAILY TO LEGS NEEDED. USE NO MORE THAN 2 WEEKS OF THE MONTH. active Not Available Not Available No t Available mupirocin 2 % topical ointment APPLY A SMALL AMOUNT TO AFFECTED AREA 3 TIMES A DAY 06/14 completed Not Available Not Available Not Available metoprolo l succinate ER 25 mg tablet,ex tended release 24 hr 08/13 completed Not Available Not Available Not Available clobetaso l 0.05 % topical ointment APPLY THIN COAT TO AFFECTED AREA TWICE A DAY active Not Available Not Available No t Available epinephri ne 0.3 mg/0.3 mL injection , auto-inje ctor INJECT 1 PEN INTRAMUS CULARLY ONCE NEEDED FOR ANAPHYLA XIS. GO TO ER IF USED active Not Available Not Available No t Available levofloxa rommel 750 mg tablet TAKE 1 TABLET BY MOUTH EVERY DAY FOR 12 DAYS 06/14 completed Not Available Not Available Not Available albuterol sulfate HFA 90 mcg/actua tion aerosol inhaler INHALE 1-2 PUFFS EVERY 4 HOURS NEEDED WHEEZING active Not Available Not Available No t Available fluticaso ne propionat e 50 mcg/actua tion nasal spray,efrain pension INSTILL 1 SPRAY IN EACH NOSTRIL TWICE DAILY active Not Available Not Available No t Available doxycycli ne hyclate 100 mg tablet TAKE 1 TABLET BY MOUTH TWICE A DAY FOR 14 DAYS 06/14 completed Not Available Not Available Not Available amoxicill in 875 mg-potass ium clavulana te 125 mg tablet TAKE 1 TABLET BY MOUTH EVERY 12 HOURS FOR 10 DAYS 02/09 completed Not Available Not Available Not Available bacitraci n-polymyx in B 500 unit-10,0 00 unit/gram eye ointment APPLY A THIN RIBBON TO LEFT EYE 3 TIMES A DAY FOR 7 DAYS. 02/09 completed Not Available Not Available Not Available levalbute rol HFA 45 mcg/actua tion aerosol inhaler INHALE 2 PUFFS BY MOUTH EVERY 6 HOURS active Not Available Not Available No t Available Lipitor daily 06/14 completed Recorded 09/08/19 12:23PM by Jane Kim LPN, Office Visit; Mail Order Quantity : 90 Tablet; Mail Order Days: 90 Days; Refill Quantity : 0; Tablet; Not Available Not Available Not Available albuterol sulfate every 4 hrs prn wheezing 06/14 completed vo KM/; 24453; Recorded 10/12/19 7:33AM by Jane Kim LPN (Authori marci through Libia Melissa PA-C), Refill Request; Refill Quantity : 3; Applicat or; Not Available Not Available Not Available fexofenad ine daily 06/14 completed 0; Recorded 09/08/19 11:46AM by Jane Kim LPN, Office Visit; Not Available Not Available Not Available amlodipin e besylate (bulk) daily 06/14 completed 90082; Recorded 10/06/19 7:49AM by Jane Kim LPN (Authori marci through Libia Melissa PA-C), Refill Request; Mail Order Quantity : 90 Tablet; Mail Order Days: 90 Days; Refill Quantity : 0; Not Available Not Available Not Available azelastin e 137 mcg-fluti casone 50 mcg/spray nasal spray USE 1 SPRAY INTO EACH NOSTRIL TWICE DAILY 02/09 completed Not Available Not Available Not Available Paxlovid 300 mg (150 mg x 2)-100 mg tablets in a dose pack TAKE 3 TABLETS BY MOUTH TWICE A DAY FOR 5 DAYS 02/09 completed Not Available Not Available Not Available Vitals Date Recorded Body height Body mass index (BMI) Body weight Oxygen saturation Oxygen saturation in Arterial blood by Pulse oximetry Heart rate Respiratory rate Body temperature Systolic And Diastolic Provider Name and Address Organization Details Last Updated DateTime 5 175.26 cm 29.1 kg/m2 31551.7 g 97 % 97 % 70 /min 16 /min 98.2 [degF] 128/80 mm[Hg] Karina Arana [facility] 5 09:43:30 Date Recorded Body height Body mass index (BMI) Body weight Oxygen saturation Oxygen saturation in Arterial blood by Pulse oximetry Heart rate Respiratory rate Body temperature Systolic And Diastolic Provider Name and Address Organization Details Last Updated DateTime 5 175.26 cm 29.7 kg/m2 14759.4 7 g 97 % 97 % 78 /min 20 /min 97 [degF] 138/80 mm[Hg] [facility] 5 10:52:26 Date Recorded Body height Body mass index (BMI) Body weight Oxygen saturation Oxygen saturation in Arterial blood by Pulse oximetry Heart rate Respiratory rate Body temperature Systolic And Diastolic Provider Name and Address Organization Details Last Updated DateTime 5 175.26 cm 29.2 kg/m2 57628.2 9 g 95 % 95 % 88 /min 16 /min 98.5 [degF] 160/90 mm[Hg] Karina Arana [facility] 5 09:37:06 Date Recorded Body height Body mass index (BMI) Body weight Oxygen saturation Oxygen saturation in Arterial blood by Pulse oximetry Heart rate Respiratory rate Body temperature Systolic And Diastolic Provider Name and Address Organization Details Last Updated DateTime 5 175.26 cm 29.4 kg/m2 94393.8 8 g 97 % 97 % 80 /min 18 /min 98 [degF] 140/70 mm[Hg] [facility] 5 15:14:58 Date Recorded Body height Body mass index (BMI) Body weight Oxygen saturation Oxygen saturation in Arterial blood by Pulse oximetry Heart rate Respiratory rate Body temperature Systolic And Diastolic Provider Name and Address Organization Details Last Updated DateTime 4 175.26 cm 28.8 kg/m2 66379.5 1 g 97 % 97 % 78 /min 20 /min 97 [degF] 130/80 mm[Hg] [facility] 4 15:33:44 Social History None recorded. Functional Status Question Answer Note LastModified by Organizat ion Details LastModified Time Do you use any illicit or recreational drugs? No [email or web address] Information not available 05/09/2024 What is your level of alcohol consumption? None [email or web address] Information not available 05/09/2024 Mental Status None recorded. Family History Nothing Reported. Medical History No medical history recorded. Immunizations Vaccine Type Date Status Note Provider Nam e and Address Organization Details Recorded Time COVID-19, mRNA, LNP-S, PF, 100 mcg/0.5mL dose or 50 mcg/0.25mL dose 03/25/2021 completed LIBIA MELISSA PA-C [address] [place], [address], [facility] 08/10/2023 09:45:12 COVID-19, mRNA, LNP-S, PF, 100 mcg/0.5mL dose or 50 mcg/0.25mL dose 04/27/2021 completed LIBIA MELISSA PA-C [address] [place] [address], [facility] 08/10/2023 09:45:12 Tdap 04/20/2023 completed LIBIA MELISSA PA-C [address] [place] [address], [address], [facility] 08/10/2023 09:45:12 Past Encounters Encounter ID Performer Location Encounter Start Date Encounter Closed Date Diagnosis/Indication Diagnosis SNOMED-CT Code Diagnosis ICD10 Code Diagnosis Note [id number] LIBIA MELISSA PA-C [facility] [address] [place] [phone] 11/03/2022 09:12:02 11/12/2022 21:48:40 Acute bacterial bronchitis 130077951 J20.9 [id number] JOJO GRIFFIN [facility] ([facility]) [address] [place] [address] 12/27/2022 08:18:01 12/27/2022 20:23:19 Bite of tick 446427034 W57.XXXA [id number] LIBIA MELISSA PA-C [facility] ([facility]) [address] [place] [address] 06/05/2023 09:31:22 06/14/2023 04:08:29 Screening for cancer 82309364 Z12.5 [id number] LIBIA MELISSA PA-C [facility] ([facility]) [address] [place] [phone] 06/14/2023 14:45:05 06/14/2023 18:23:31 Tachycardia 2510127 R00.0 Laceration of left thumb 6042900292 4045027 S61.112A 1 cm laceration on the tip of thumb. not gapping or flapped or bleedingCl eaned with betadine and place a protective layer of dermabond. aluminum splint given for protection . Watch for infectionL ast Tdap was 2 months ago. [id number] BELINDA REED [facility] ([facility]) [address] [place] [phone] 07/05/2023 08:10:07 07/05/2023 09:24:58 Acute upper respiratory infection 58460430 J06.9 Start doxycyline today. Can take benzonatat e PRN for cough. Encouraged patient to push fluids and use cool mist humidifier at night. Can take tylenol/ib uprofen as needed for pain and fever. Encouraged patient to return for further evaluation if no improvemen t in 3-5 days. If severe SOB or chest pain occurs, go to ED. Patient verbalized understand ing. If no improvemen t in 3-5 days, will consider oral prednisone due to wheezing. Patient declined prednisone today. [id number] LIBIA MELISSA PA-C [facility] ([facility]) [address] [place] [id number] 08/10/2023 09:29:13 08/10/2023 10:07:28 Acute sinusitis 94596551 J01.90 Hyperlipidemia 36213223 E78.5 Thrombocyt openic disorder 483694480 D69.6 stable Benign ess ential hypertension 2581811 I10 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 Avoid opening blister. [id number] LIBIA MELISSA PA-C [facility] ([facility]) [address] [place] [id number] 04/03/2024 15:15:51 04/22/2024 14:38:27 Chronic low back pain 036794805 M54.50 Chronic neck pain 468267 1423 107 M54.2 Intermitte nt palpitations 877359675 R00.2 Tachycardia 1493080 R00. 0 [id number] David Trimble MD [facility] ([facility]) [address] [place] [id number] 05/09/2024 08:21:14 05/09/2024 15:30:51 Upper respiratory infection 72830644 J06.9 Patient presented with symptoms of viral upper respirator y infection. Advised to drink plenty of fluids, run a cool-mist humidifier in room at night, gargle salt water for sore throat, and get plenty of rest. Patient should avoid over-exert ion and reduce exposure to irritants such as smoke, cold, dry air, and dust. Treatment currently involves symptomati c relief. Patient may take acetaminop hen or ibuprofen as directed to reduce fever and body aches. Antihistam ine and decongesta nt usage was discussed and recommenda tions made. Patient understood these instructio ns and will follow up in the office in 7-10 days if symptoms not improving. [id number] LIBIA MELISSA PA-C [facility] ([facility]) [address] [place] [id number] 06/12/2024 14:58:00 06/25/2024 22:12:22 Supraventricular tachycardia 4327873 I47.10 reviewed his results with him. explaining SVT and the short runs he has. We can do a trial of beta david to reduces freq of them. he requests cardiology referal. Trigger fi nger of right hand [id number] 9656602 M65.30 thumb . [id number] David Trimble MD [facility] ([facility]) [address] [place] [id number] 08/08/2024 09:40:00 08/12/2024 11:04:19 Acute bronchitis with bronchospasm 79920727 J20.9 Will start antibiotic s given duration of symptoms. Will provide prednisone to help with symptoms. [id number] LIBIA MELISSA PA-C [facility] ([facility]) [address] [place] [address] 5 08/13/2024 10:27:58 08/13/2024 11:30:42 Supraventricular tachycardia 7664482 I47.10 3 ER visits this month. now upto 50mg of Metoprolol Has appt with cardiology in Sep. On the wait list for cancelatio n to get in soonerNdll need ECHO and Stress test. Hyperlipidemia 04102227 E78.5 Essential hypertension 94562622 I10 Low back pain 607255449 M54.50 [id number] JOJO REN [facility] ([facility]) [address] [place] [id number] 09/11/2024 09:33:01 09/11/2024 09:55:56 Fever 106889975 R50.9 Influenza caused by Influenza A virus 287736989 J09.X2 Increase po fluids. Rest. May use otc meds as needed for symptoms. Return to clinic with any new or worsening symptoms. [id number] LIBIA MELISSA PA-C [facility] ([facility]) [address] [place] [id number] 12/31/2024 15:01:18 12/31/2024 16:20:22 Hoarse 83437061 R49.0 Pt is already est. with Dr. Begum. He will call him for appt to discuss the tickly cough and freq clearing. Chronic cough 30386510 R 05.3 Acute cont act dermatitis 421680400 L25.9 Health Concerns Section Related Observation LastModified by Organization Detai ls LastModified Time None Recorded Concern Status LastModified by Organization Details LastModified Time None Recorded Advance Directives Directive None Recorded Payers Insurance Date Sequence Insurance Name Policy Number Policy Perry Covered Member ID Perry Member ID Guarantor Name 12/28/2024 [facility] [place] - [id number] (MEDICARE[place] José Miguel Parrish [id number] 1 José Miguel Parrish 12/28/2024 1 [place] José Miguel Parrish [id number] José Miguel Parrish 12/28/2024 2 [place] [id number] José Miguel Parrihs [id number] José Miguel Parrish Notes Date Note Type Note Provider Name and Address Organization Details Recorded Time 4 text/html Musculoskeletal PainReported bypatient.Location:bilate ral hand; thumbs Quality:sharp; clicking in both thumbs Severity:worsening;interf eres with sleep;interferes with work/school Duration:present for 6-12 months Timing:constant; gradual Aggravating factors:movement/position ing Associated Symptoms:weak limbs ADLs Affected:walkingPalpitati onsReported bypatient.Notes:event monitor was done for 21 days in Apr to May. overall was good. 5 runs of SVT captured lasted a few beats to 30 sec max HR 176 pt with catching and clicking of his R thumb. both thumbs are painful but the right is more and catches. no injury. no overuse. Just started happening. LIBIA MELISSA PA-C [address] [place] [address], [phone], [facility] 06/25/2024 11:47:53 5 text/html walk in patientpatient is here today for a productive cough, chest congestion that started 3 weeks ago David Trimble MD [address] [place] [address], [phone], [facility] 08/11/2024 07:08:41 5 text/html PalpitationsReported bypatient.Location:chest Quality:rapid and sustained;rapid;erratic Severity:moderate Duration:lasts hours Onset/Timing:occurs ; multiple times per day Context:after caffeine use;family history of heart disease Aggravating Factors:caffeine Alleviating Factors:medication Associated Symptoms:no chest pain/discomfort; no dyspnea; no decline in exercise capacity Associated Diagnoses:PVCs hospital follow up for elevated heart rate on 08-01-24 , 08-05-24 and 08-06-24 started me on metoprolol 25mg then increased it to 50mg. I need a refill for a 50mg tab till I can see the chlorinator on 08-13-24 I also need a refill on my albuterol inhaler. LIBIA MELISSA PA-C [address] [place], [address], [facility] 08/13/2024 11:30:04 5 text/html walk in patientpatient is here today for fever, headache, body ache, and ear pain that started 2 days ago JOJO REN [address] [place], [address], [facility], L[facility]ayL[facility]ayC[facility]ay 09/11/2024 09:51:12 5 text/html CoughReported bypatient.Quality:product sara Severity:pain with cough; moderate Duration:constant; chronic (>8 weeks) Onset/Timing:gradual Context:non-smoker; upper airway cough syndrome Associated Symptoms:no heartburn;throat clearing;difficulty swallowing;hoarseness;dys pneaNotes:not on Seven. On allergy shots and taking his allergy medsFeels like it is more of a tickle/throat clearing cough then coming from his lungs.Skin LesionReported bypatient.Location:whole body Quality:painful; tender; sore Severity:moderate Duration:6 months Timing:gradual; constant for 6 months I have had a cough where I lose my breath and it hurts in my throat.I get tick bites and need some clobetasol ointment if Libia will refill. LIBIA MELISSA PA-C [address] [place], [address], [facility] 12/31/2024 16:20:08
== END 2025-02-13 23:38 | disposition left against medical advice (07) ==
LOC: ER 21:33
PROVIDERS: Emergency Provider Family Medicine; PCP Physician Assistant
DX: Z53.21 Procedure and treatment not carried out due to patient leaving prior to being seen by health care provider (principal)

== ENCOUNTER 2025-05-20 13:28 | Outpatient (CLI) | payer MEDICARE, BC, SELFPAY ==
--- NOTE | 2025-05-20 13:36 | MR_ITS ---
WS: [id number] MRI HEAD WITH CONTRAST WITH ATTENTION TO THE INTERNAL AUDITORY CANALS TECHNIQUE: Sagittal T1, T2 axial, T2 axial flair, axial susceptibility weighted imaging, axial diffusion weighted images, and coronal T2 images were obtained. Pre and post T1 axial and post T1 coronal images. ADC and FSPGR images. Post gadolinium images with attention to the internal auditory canals. Axial fiesta imaging. CLINICAL INFORMATION: BILATERAL HEARING LOSS,SENSORINEURAL COMPARISON: 10/10/2024 FINDINGS: Again seen is the enhancing small nodule LEFT IAC measuring approximately 3 mm most compatible with a small vestibular schwannoma. This appears stable compared to previous. No other significant interval changes. RIGHT IAC is normal in appearance. Normal trigeminal nerve root entry zones. No abnormal intracranial enhancement. Normal dural venous sinuses. No evidence of restricted diffusion to suggest acute ischemia. Mild small vessel changes. Moderate parenchymal volume loss. A few small intraparotid lymph node. No extra- axial fluid collections. No evidence of mass or mass effect. Paranasal sinuses are well aerated. Mastoid air cells are well aerated. Normal posterior nasopharynx. MR/MR iac's wo/w con* [id number] IMPRESSION: 1. Stable 3 mm enhancing nodule LEFT IAC mass compatible with vestibular schwa nnoma. 2. No other significant interval changes.
== END 2025-05-20 13:29 | disposition home or self-care (01) ==
LOC: RAD 13:30
PROVIDERS: PCP Physician Assistant; Visit Provider Specialist
DX: H90.3 Sensorineural hearing loss, bilateral (principal); D33.3 Benign neoplasm of cranial nerves; G93.89 Other specified disorders of brain; I67.89 Other cerebrovascular disease; R59.9 Enlarged lymph nodes, unspecified
CPT/HCPCS: 70553

== ENCOUNTER 2025-06-10 19:58 | Outpatient (CLI) | payer MEDICARE, BC, SELFPAY | END 2025-06-10 19:59 | disposition home or self-care (01) | LOC: SLEEP 20:00 | PROVIDERS: PCP Physician Assistant; Referring Provider Family Medicine; Visit Provider Internal Medicine Pulmonary Disease | DX: G47.33 Obstructive sleep apnea (adult) (pediatric) (principal) | CPT/HCPCS: 95811 ==

== ENCOUNTER → 2025-07-21 08:00 | Outpatient (BNVA) | payer MEDICARE, BC, SELFPAY | PROVIDERS: PCP Physician Assistant; Visit Provider Nurse Practitioner Family | DX: B35.3 Tinea pedis (principal); L91.8 Other hypertrophic disorders of the skin; D18.01 Hemangioma of skin and subcutaneous tissue; Z08 Encounter for follow-up examination after completed treatment for malignant neoplasm; Z85.828 Personal history of other malignant neoplasm of skin; Z80.8 Family history of malignant neoplasm of other organs or systems; L82.0 Inflamed seborrheic keratosis; R20.8 Other disturbances of skin sensation; L53.8 Other specified erythematous conditions; D48.5 Neoplasm of uncertain behavior of skin; L57.0 Actinic keratosis | CPT/HCPCS: 11102; 17000; 17110; 99214 ==

== ENCOUNTER 2025-07-28 06:58 | Outpatient (CLI) | payer MEDICARE, BC, SELFPAY ==
--- NOTE | 2025-07-28 07:14 | MR_ITS ---
WS: [id number] MRI RIGHT SHOULDER NONCONTRAST TECHNIQUE: Sagittal T2, coronal T1, T2 and proton density imaging. Axial gradient PDE imaging. CLINICAL INFORMATION: ROTATOR CUFF IMPINGEMENT SYNDROME OF RIGHT SHOULDER COMPARISON: None. FINDINGS: Advanced degenerative arthritis AC joint with small amount of fluid and edema. Synovial thickening. Downsloping acromion with impingement on the supraspinatus. Subacromial spurring with narrowing of the subacromial space. Small amount of subacromial subdeltoid fluid. Partial thickness tear distal supraspinatus measuring 8 mm. Normal infraspinatus. Normal teres minor. Subscapularis tendon is normal. Normal biceps tendon in the bicipital groove. Normal intra-articular biceps tendon. Moderate degenerative narrowing of the glenohumeral articulation. Biceps labral anchor appears intact. MR/MR shoulder RT wo con* [id number] IMPRESSION: 1. Advanced arthritis AC joint with moderate downsloping acromion and subacrom ial spurring. Impingement on the supraspinatus. 2. Partial-thickness distal supraspinatus insertional tear measuring 8 mm 3. Rotator cuff is otherwise intact. 4. Biceps tendon intact in the bicipital groove. Intra-articular biceps tendon appears intact. 5. Moderate degenerative narrowing glenohumeral articulation.
== END 2025-07-28 06:59 | disposition home or self-care (01) ==
LOC: RAD 06:59
PROVIDERS: PCP Physician Assistant; Visit Provider Physician Assistant
DX: M75.41 Impingement syndrome of right shoulder (principal); M19.011 Primary osteoarthritis, right shoulder; M25.811 Other specified joint disorders, right shoulder
CPT/HCPCS: 73221